=== PATIENT | female | born 1980 | race Caucasian/White ===

== ENCOUNTER → 2016-06-01 | Outpatient (CLI) | payer MEDICARE, OTHER ==
--- NOTE | 2016-06-01 23:35 | MR ---
EXAMINATION TYPE: MR cervical spine wo con DATE OF EXAM: 06/01/2016 8:00 PM COMPARISON: 03/30/2014 HISTORY: Neck pain TECHNIQUE: Multiplanar, multisequence images of the cervical spine were acquired. IMPRESSION: The cervical vertebra have normal spacing and alignment. Posterior element are intact. Cervical spina l cord has normal signal pattern without evidence of edema. There is no spinal stenosis. There is no evidence of cervical disc herniation. There is no paraspinal mass. Brainstem appears intact. CONCLUSION: Negative MR scan of the cervical spine. No cervical disc herniation or spinal stenosis. There are figueroa y small posterior disc bulges at levels from C3 to C6 without any impingement on the spinal canal.
== END | disposition home or self-care (01) ==
LOC: RADMRIMAIN 19:28
PROVIDERS: ATTEND Psychiatry & Neurology Neurology
DX: M50.21 Other cervical disc displacement, high cervical region (principal)
CPT/HCPCS: 72141

== ENCOUNTER → 2016-06-23 | Outpatient (CLI) | payer MEDICARE, OTHER ==
[2016-06-23 15:45] LABS: ALT 26 U/L (9-52); AST 17 U/L (14-36); Alkaline Phosphatase 58 U/L (38-126); Anion Gap 10 mmol/L; Calcium 9.4 mg/dL (8.4-10.2); Carbon Dioxide 28 mmol/L (22-30); Chloride 102 mmol/L (98-107); Glucose 97 mg/dL (74-99); Non-African American GFR(MDRD) >60 (>60 ml/min/1.73 sqM); Potassium 4.1 mmol/L (3.5-5.1); Sodium 140 mmol/L (137-145); Total Bilirubin 0.3 mg/dL (0.2-1.3); Total Protein 7.2 g/dL (6.3-8.2)
[2016-06-23 15:47] LABS: Basophils % (A) 1 %; CHCM 33.2; Eosinophils % (A) 1 %; HCT 42.9 % (34.0-46.0); HDW 2.16; HGB 13.7 gm/dL (11.4-16.0); Luc # (Auto) 0.05; Luc % (Auto) 1; Lymphocytes # (A) 0.5 k/uL (1.0-4.8); Lymphocytes % (A) 11 %; MCV 87.4 fL (80.0-100.0); Mean Platelet Volume 9.8; Monocytes # (A) 0.3 k/uL (0-1.0); Monocytes % (A) 7 %; Neutrophils # (A) 3.2 k/uL (1.3-7.7); Neutrophils % (A) 79 %; RBC 4.91 m/uL (3.80-5.40); RDW 13.3 % (11.5-15.5); WBC (Perox) 3.91
[2016-06-23 16:01] LABS: Blood Urea Nitrogen 9 mg/dL (7-17)
[2016-06-23 16:33] LABS: Vitamin B12 449 pg/mL (239-931)
== END | disposition home or self-care (01) ==
LOC: LABWHC1 15:15
PROVIDERS: ATTEND Psychiatry & Neurology Neurology
DX: R41.3 Other amnesia (principal); E55.9 Vitamin D deficiency, unspecified
CPT/HCPCS: 36415; 80053; 82306; 82607; 84439; 84443; 84481; 85025

== ENCOUNTER → 2016-09-28 | Outpatient (CLI) | payer MEDICARE, OTHER ==
[2016-09-28 11:44] LABS: Basophils % (A) 1 %; CH 29.5; CHCM 32.7; Eosinophils # (A) 0.1 k/uL (0-0.7); Eosinophils % (A) 2 %; HCT 43.9 % (34.0-46.0); HDW 2.18; HGB 14.2 gm/dL (11.4-16.0); Luc # (Auto) 0.15; Luc % (Auto) 4; Lymphocytes # (A) 0.4 k/uL (1.0-4.8); Lymphocytes % (A) 10 %; MCH 29.4 pg (25.0-35.0); MCHC 32.5 g/dL (31.0-37.0); MCV 90.4 fL (80.0-100.0); Mean Platelet Volume 9.4; Monocytes # (A) 0.3 k/uL (0-1.0); Monocytes % (A) 8 %; Neutrophils # (A) 2.8 k/uL (1.3-7.7); Neutrophils % (A) 76 %; RBC 4.85 m/uL (3.80-5.40); WBC 3.7 k/uL (3.8-10.6); WBC (Perox) 3.55
[2016-10-04 10:34] LABS: Mis test requested (Blood) Stratify JCV w/ Rflx
== END | disposition home or self-care (01) ==
LOC: LABWHC1 11:12
PROVIDERS: ATTEND Nurse Practitioner Acute Care
DX: E55.9 Vitamin D deficiency, unspecified (principal); G35 Multiple sclerosis
CPT/HCPCS: 36415; 82306; 85025

== ENCOUNTER → 2017-02-16 | Outpatient (CLI) | payer MEDICARE, OTHER ==
[2017-02-16 16:14] LABS: Basophils % (A) 0 %; CH 30.5; CHCM 33.3; Eosinophils # (A) 0.1 k/uL (0-0.7); Eosinophils % (A) 2 %; HCT 44.1 % (34.0-46.0); HGB 14.5 gm/dL (11.4-16.0); Luc # (Auto) 0.07; Luc % (Auto) 1; Lymphocytes # (A) 0.8 k/uL (1.0-4.8); Lymphocytes % (A) 10 %; MCH 30.2 pg (25.0-35.0); MCHC 32.8 g/dL (31.0-37.0); MCV 92.1 fL (80.0-100.0); Mean Platelet Volume 10.2; Monocytes # (A) 0.7 k/uL (0-1.0); Monocytes % (A) 9 %; Neutrophils # (A) 5.9 k/uL (1.3-7.7); Neutrophils % (A) 77 %; RBC 4.79 m/uL (3.80-5.40); RDW 15.1 % (11.5-15.5); WBC 7.7 k/uL (3.8-10.6); WBC (Perox) 7.54
== END | disposition home or self-care (01) ==
LOC: LABWHC1 15:12
PROVIDERS: ATTEND Physician Assistant
DX: G35 Multiple sclerosis (principal); D72.810 Lymphocytopenia
CPT/HCPCS: 36415; 85025

== ENCOUNTER → 2017-02-22 | Outpatient (CLI) | payer MEDICARE, OTHER ==
--- NOTE | 2017-02-22 23:20 | MR ---
EXAMINATION TYPE: MR brain wo/w con DATE OF EXAM: 02/22/2017 COMPARISON: 02/25/2016 HISTORY: Multiple sclerosis with visual changes TECHNIQUE: Multiplanar, multisequence images of the brain and brainstem is performed without and with IV contras t, utilizing 8.0 mL intravenous Gadavist . FINDINGS: Ventricles of normal size. There is no mass effect nor midline shift. There is no evidence of intracranial hemorrhage. There are multiple scattered foci of increased signal on the T2 and FLAIR images at the corado-white matter junction of both cerebral hemispheres. These are more noticeable in the frontal lobes. Total number is more than 25 and these measure up to 10 mm. Brain stem is intact. Cerebellum appears normal. The sella turcica is normal. Corpus callosum appears fairly normal. The brainstem appears normal. I see no pathologic enhancement. IMPRESSION: Numerous white matter high signal lesions in both cerebral hemispheres appear fairly stab le compared to last exam and would be consistent with small vessel ischemia or demyelinating disease. The pattern is not typical for MS since I see no definite corpus callosum involvement. This is never theless more likely MS because of the patient's age. I see no new lesions compared to old exam.
== END | disposition home or self-care (01) ==
LOC: RADMRIMAIN 18:34
PROVIDERS: ATTEND Nurse Practitioner Acute Care
DX: G93.9 Disorder of brain, unspecified (principal); G35 Multiple sclerosis; R90.82 White matter disease, unspecified; H53.9 Unspecified visual disturbance; Z88.2 Allergy status to sulfonamides
CPT/HCPCS: 70553; A9581

== ENCOUNTER → 2017-06-22 | Outpatient (CLI) | payer MEDICARE, OTHER ==
--- NOTE | 2017-06-22 17:21 | XR ---
EXAMINATION TYPE: XR chest 2V DATE OF EXAM: 06/22/2017 COMPARISON: 03/17/2016 HISTORY: Bronchitis. Chest pain cough TECHNIQUE: Frontal and lateral views of the chest are obtained. FINDINGS: Heart and mediastinum are normal. There are surgical clips over the left side of the neck. Lungs are clear of infiltrate. There is no heart failure. There is mild pulmonary hyperinflation. IMPRESSION: There is probably some degree of COPD. No acute lung disease. No change.
== END | disposition home or self-care (01) ==
LOC: RADXRMAIN 16:25
PROVIDERS: ATTEND Family Medicine
DX: R05 Cough (principal)
CPT/HCPCS: 71046

== ENCOUNTER → 2017-07-17 | Outpatient (CLI) | payer MEDICARE, OTHER | END | disposition home or self-care (01) | LOC: CPPFTMAIN 11:57 | PROVIDERS: ATTEND Family Medicine | DX: R05 Cough (principal) | CPT/HCPCS: 94060; 94726; 94729 ==

== ENCOUNTER → 2017-08-13 | Outpatient (CLI) | payer MEDICARE, OTHER ==
[2017-08-13 09:56] LABS: HCT 41.6 % (34.0-46.0); HGB 13.1 gm/dL (11.4-16.0); MCH 27.9 pg (25.0-35.0); MCHC 31.5 g/dL (31.0-37.0); MCV 88.5 fL (80.0-100.0); Platelet Count 142 k/uL (150-450); RDW 14.2 % (11.5-15.5); WBC 5.6 k/uL (3.8-10.6)
[2017-08-13 10:22] LABS: ALT 17 U/L (9-52); AST 19 U/L (14-36); Albumin 3.6 g/dL (3.5-5.0); Alkaline Phosphatase 68 U/L (38-126); Anion Gap 8 mmol/L; Blood Urea Nitrogen 7 mg/dL (7-17); Calcium 8.4 mg/dL (8.4-10.2); Carbon Dioxide 29 mmol/L (22-30); Chloride 103 mmol/L (98-107); Glucose 99 mg/dL (74-99); Potassium 4.1 mmol/L (3.5-5.1); Sodium 140 mmol/L (137-145); Total Bilirubin 0.2 mg/dL (0.2-1.3); Total Protein 6.3 g/dL (6.3-8.2)
[2017-08-13 16:00] LABS: Vitamin D 25 Hydroxy 23.4 ng/mL (30.0-100.0)
== END | disposition home or self-care (01) ==
LOC: LABWHC1 09:21
PROVIDERS: ATTEND Nurse Practitioner Acute Care
DX: G35 Multiple sclerosis (principal); R53.83 Other fatigue
CPT/HCPCS: 36415; 80053; 82306; 82607; 85027

== ENCOUNTER → 2017-12-07 | Outpatient (CLI) | payer MEDICARE, OTHER ==
[2017-12-07 16:06] LABS: Basophils % (A) 1 %; Eosinophils % (A) 1 %; HCT 42.9 % (34.0-46.0); HGB 14.2 gm/dL (11.4-16.0); Lymphocytes # (A) 0.8 k/uL (1.0-4.8); Lymphocytes % (A) 23 %; MCH 28.4 pg (25.0-35.0); MCHC 33.2 g/dL (31.0-37.0); MCV 85.6 fL (80.0-100.0); Mean Platelet Volume 9.6; Monocytes # (A) 0.3 k/uL (0-1.0); Monocytes % (A) 8 %; Neutrophils # (A) 2.3 k/uL (1.3-7.7); Neutrophils % (A) 66 %; Platelet Count 147 k/uL (150-450); RDW 13.8 % (11.5-15.5); WBC 3.4 k/uL (3.8-10.6)
== END | disposition home or self-care (01) ==
LOC: LABWHC1 15:46
PROVIDERS: ATTEND Nurse Practitioner Acute Care
DX: G35 Multiple sclerosis (principal)
CPT/HCPCS: 36415; 82306; 85025

== ENCOUNTER → 2018-02-19 | Outpatient (CLI) | payer MEDICARE, OTHER ==
--- NOTE | 2018-02-20 14:42 | MM ---
Reason for exam: screening (asymptomatic). Last mammogram was performed 2 years and 7 months ago. History: Took hormonal contraceptives for 5 years. Physical Findings: A clinical breast exam by your physician is recommended on an annual basis and results should be correlated with mammographic findings. MG Screening Mammo w CAD Bilateral CC and MLO view(s) were taken. Prior study comparison: July 12, 2015, bilateral MG screening mammo w CAD. July 03, 2014, bilateral MG diagnostic mammo w CAD SHIVAM. The breast tissue is extremely dense which could obscure a lesion on mammography. No significant changes when compared with prior studies. ASSESSMENT: Negative, BI-RAD 1 RECOMMENDATION: Routine screening mammogram of both breasts in 1 year. Patient should continue monthly self breast exams. A negative report should not preclude additional follow up of suspicious palpable abnormalities. Manage on a clinical basis with regard to lateral right breast pain.
== END | disposition home or self-care (01) ==
LOC: RADMAMWWP 15:53
PROVIDERS: ATTEND Family Medicine
DX: Z12.31 Encounter for screening mammogram for malignant neoplasm of breast (principal)
CPT/HCPCS: 77067

== ENCOUNTER → 2018-07-26 | Outpatient (CLI) | payer MEDICARE, OTHER ==
[2018-07-26 14:52] LABS: Basophils % (A) 0 %; Eosinophils # (A) 0.1 k/uL (0-0.7); Eosinophils % (A) 1 %; HCT 41.6 % (34.0-46.0); HGB 13.5 gm/dL (11.4-16.0); Lymphocytes # (A) 0.7 k/uL (1.0-4.8); Lymphocytes % (A) 12 %; MCHC 32.5 g/dL (31.0-37.0); MCV 89.1 fL (80.0-100.0); Mean Platelet Volume 9.2; Monocytes # (A) 0.4 k/uL (0-1.0); Monocytes % (A) 7 %; Neutrophils # (A) 4.4 k/uL (1.3-7.7); Neutrophils % (A) 79 %; Platelet Count 151 k/uL (150-450); RBC 4.67 m/uL (3.80-5.40); RDW 14.1 % (11.5-15.5); WBC 5.6 k/uL (3.8-10.6)
[2018-07-26 20:12] LABS: Albumin 4.2 g/dL (3.80-4.90); Albumin/Globulin Ratio 2.33 (1.60-3.17); Anion Gap 9.3 mmol/L (4.00-12.00); Calcium 9.1 mg/dL (8.7-10.3); Carbon Dioxide 24.7 mmol/L (21.6-31.8); Globulin 1.8 g/dL (1.6-3.3); Potassium 3.9 mmol/L (3.5-5.5); Total Bilirubin 0.3 mg/dL (0.2-1.2)
== END ==
LOC: LABWHC1 14:08
PROVIDERS: ATTEND Physician Assistant
DX: G35 Multiple sclerosis (principal)
CPT/HCPCS: 36415; 80053; 82306; 85025

== ENCOUNTER → 2019-04-03 | Outpatient (CLI) | payer MEDICARE, OTHER ==
--- NOTE | 2019-04-03 10:58 | XR ---
EXAMINATION TYPE: XR chest 2V DATE OF EXAM: 04/03/2019 COMPARISON: 06/22/2017 TECHNIQUE: PA and lateral views submitted. HISTORY: Pharyngitis FINDINGS: The lungs are clear and there is no pneumothorax, pleural effusion, or focal pneumonia. Postsurgica l changes in the soft tissues the neck. Biapical pleural thickening. Chronic appearing rib deformity in the upper left rib cage. Finding is stable. No overt failure. There is mild hyperinflation correla te for COPD. Mild hypertrophic change of the vertebral column. No overt failure. IMPRESSION: 1. No acute process.
== END | disposition home or self-care (01) ==
LOC: RADXRMAIN 10:36
PROVIDERS: ATTEND Family Medicine
DX: J02.9 Acute pharyngitis, unspecified (principal)
CPT/HCPCS: 71046

== ENCOUNTER 2019-04-06 20:52 | Emergency (ER) | payer MEDICARE, OTHER ==
[2019-04-06 20:59] VITALS: BP 120/85; RESP 16; TEMP 97.4
[2019-04-06] MEDS ORDERED: IPRATROPIUM-ALBUTEROL 3 ML NEB INHALATION STA (21:12)
[2019-04-06] MEDS ORDERED: IBUPROFEN 600 MG TAB PO STA (21:12)
[2019-04-06] MEDS ORDERED: ACETAMINOPHEN TAB 500 MG TAB PO STA (21:12)
[2019-04-06] MEDS ORDERED: DEXAMETHASONE SOD PHOSPHATE 10 MG/ML 1 ML VIAL IM STA (21:12)
--- NOTE | 2019-04-06 21:16 | ED ---
URI HPI - General Chief Complaint: Upper Respiratory Infection Stated Complaint: Cough Time Seen by Provider: 04/06/19 21:00 Source: patient, RN notes reviewed, old records reviewed Mode of arrival: ambulatory Limitations: no limitations - History of Present Illness Initial Comments: This is a 39-year-old female the ER for evaluation medical history significant for MS and is a smoker. Patient comes today for cough and congestion having some chest pain symptoms 3 months. Patient has seen her primary care doctor told she has a viral infection and has carried on. Patient denies fevers. Rarely occasional chest pain only with coughing. No travel history no sick contacts does have positive productive cough mucus production. Shortness of breath with exertion, patient has continued to smoke. No history of heart disease. No known significant sick contacts or recent hospitalizations. MD Complaint: cough, nasal congestion -: month(s) Severity: moderate Severity scale (1-10): 3 Consistency: intermittent Improves With: nothing Worsens With: activity, deep breaths Associated Symptoms: myalgias, nasal congestion, shortness of breath Treatments Prior to Arrival: Acetaminophen, Ibuprofen - Related Data Home Medications Medication Instructions Recorded Confirmed HYDROcodone/APAP 7.5-325MG [[place] 1 tab PO Q6H PRN 10/06/13 06/28/16 7.5-325] Ibuprofen [Motrin] 600 mg PO BID PRN 10/06/13 06/28/16 Dimethyl Fumarate [Tecfidera] 240 mg PO BID 03/23/14 06/28/16 Previous Rx's Medication Instructions Recorded HYDROcodone/APAP 7.5-325MG [[place] 1 each PO Q6HR PRN #30 tab 03/31/16 7.5] Albuterol Sulfate [Proair Hfa] 1 - 2 puff INHALATION Q4H PRN #1 04/06/19 inhaler Azithromycin [Zithromax Z-pack] 0 mg PO DIRECTED #1 pack 04/06/19 predniSONE 50 mg PO DAILY #5 tab 04/06/19 Allergies Allergy/AdvReac Type Severity Reaction Status Date / Time hydrocodone bitartrate Allergy Intermediate Nausea & Verified 06/28/16 08:50 [From Lortab] Vomiting & Diarrhea oxycodone HCl [From Percocet] Allergy Intermediate Nausea & Verified 06/28/16 08:50 Vomiting & Diarrhea Review of Systems ROS Statement: Those systems with pertinent positive or pertinent negative responses have been documented in the HPI. ROS Other: All systems not noted in ROS Statement are negative. Past Medical History Past Medical History: Neurologic Disorder, Rheumatoid Arthritis (RA) Additional Past Medical History / Comment(s): MS History of Any Multi-Drug Resistant Organisms: None Reported Past Surgical History: Appendectomy, Hysterectomy, Orthopedic Surgery, Tubal Ligation Additional Past Surgical History / Comment(s): 3 surgeries left kneeremoval abdominal tumor under left breast as Past Psychological History: No Psychological Hx Reported Smoking Status: Current every day smoker Past Alcohol Use History: None Reported Past Drug Use History: None Reported General Exam Limitations: no limitations General appearance: alert, in no apparent distress Head exam: Present: atraumatic, normocephalic, normal inspection Eye exam: Present: normal appearance, PERRL, EOMI. Absent: scleral icterus, conjunctival injection, periorbital swelling ENT exam: Present: normal exam, mucous membranes moist Neck exam: Present: normal inspection. Absent: tenderness, meningismus, lymphadenopathy Respiratory exam: Present: wheezes, decreased breath sounds. Absent: respiratory distress, rales, rhonchi, stridor Cardiovascular Exam: Present: regular rate, normal rhythm, normal heart sounds. Absent: systolic murmur, diastolic murmur, rubs, gallop, clicks GI/Abdominal exam: Present: soft, normal bowel sounds. Absent: distended, tenderness, guarding, rebound, rigid Extremities exam: Present: normal inspection, full ROM, normal capillary refill. Absent: tenderness, pedal edema, joint swelling, calf tenderness Back exam: Present: normal inspection Neurological exam: Present: alert, oriented X3, CN II-XII intact Psychiatric exam: Present: normal affect, normal mood Skin exam: Present: warm, dry, intact, normal color. Absent: rash Course Vital Signs 04/06/19 20:56 Temperature 97.4 F L Pulse Rate 85 Respiratory 16 Rate Blood Pressure 120/85 O2 Sat by Pulse 99 Oximetry - Reevaluation(s) Reevaluation #1: 04/06/19 21:14 Medical records reviewed 04/06/19 21:15 Patient did have recent outpatient x-rays as well as lab work all labwork was normal x-ray was negative Reevaluation #2: 04/06/19 21:54 Improvement with breathing treatments Reevaluation #3: 04/06/19 21:15 Patient given instructions on how to quit smoking Medical Decision Making - Medical Decision Making 39 female with a pressure infection, bronchitis, will treat appropriately and patient can be discharged home Disposition Clinical Impression: Acute upper respiratory infection, Bronchitis Disposition: ADMITTED IP TO THIS HOSP Condition: Good Instructions (If sedation given, give patient instructions): Upper Respiratory Infection (ED), Acute Bronchitis (ED), How to Stop Smoking (ED) Prescriptions: predniSONE 50 mg PO DAILY #5 tab Albuterol Sulfate [Proair Hfa] 1 - 2 puff INHALATION Q4H PRN #1 inhaler PRN Reason: Shortness Of Breath Azithromycin [Zithromax Z-pack] 0 mg PO DIRECTED #1 pack Is patient prescribed a controlled substance at d/c from ED?: No Referrals: Vince Lindsey [Primary Care Provider] - 1-2 days
[2019-04-06 21:34] VITALS: PULSE 88
== END 2019-04-06 22:08 | disposition other institution (70) ==
LOC: EC 20:52
DX: J40 Bronchitis, not specified as acute or chronic (principal); J06.9 Acute upper respiratory infection, unspecified; G35 Multiple sclerosis; M06.9 Rheumatoid arthritis, unspecified; F17.200 Nicotine dependence, unspecified, uncomplicated; Z79.899 Other long term (current) drug therapy; Z88.5 Allergy status to narcotic agent; Z71.6 Tobacco abuse counseling
CPT/HCPCS: 94640; 96372; 99284; J1100

== ENCOUNTER 2019-07-02 21:08 | Emergency (ER) | payer MEDICARE, OTHER ==
[2019-07-02 21:15] VITALS: BP 126/82; PULSE 92; RESP 20; TEMP 98
--- NOTE | 2019-07-02 22:17 | ED ---
General Adult HPI - General Chief complaint: Extremity Injury, Upper Stated complaint: rt hand numbness Time Seen by Provider: 07/02/19 21:18 Source: patient, RN notes reviewed, old records reviewed Mode of arrival: ambulatory Limitations: no limitations - History of Present Illness Initial comments: 39-year-old female patient presents to ED for chief complaint of paresthesias on the first second and third digits on the right hand. It has been ongoing for approximately 3 days. Patient did mention this to her neurologist on Sunday and had a steroid shot. That has not been improving. Denies any other complaints. Systemic: Pt denies fatigue, fever/chills, rash. Pt denies weakness, night sweats, weight loss. Neuro: Pt denies headache, visual disturbances, syncope or pre-syncope. HEENT: Pt denies ocular discharge or irritation, otalgia, rhinorrhea, pharyngitis or notable lymphadenopathy. Cardiopulmonary: Pt denies chest pain, SOB, heart palpitations, dyspnea on exertion. Abdominal/GI: Pt denies abdominal pain, n/v/d. : Pt denies dysuria, burning w/ urination, frequency/urgency. Denies new onset urinary or bowel incontinence. MSK: Pt denies myalgia, loss of strength or function in extremities. Neuro: Pt denies new onset weakness. - Related Data Home Medications Medication Instructions Recorded Confirmed HYDROcodone/APAP 7.5-325MG [[place] 1 tab PO Q6H PRN 10/06/13 06/28/16 7.5-325] Ibuprofen [Motrin] 600 mg PO BID PRN 10/06/13 06/28/16 Dimethyl Fumarate [Tecfidera] 240 mg PO BID 03/23/14 06/28/16 Previous Rx's Medication Instructions Recorded HYDROcodone/APAP 7.5-325MG [[place] 1 each PO Q6HR PRN #30 tab 03/31/16 7.5] Albuterol Sulfate [Proair Hfa] 1 - 2 puff INHALATION Q4H PRN #1 04/06/19 inhaler Azithromycin [Zithromax Z-pack] 0 mg PO DIRECTED #1 pack 04/06/19 predniSONE 50 mg PO DAILY #5 tab 04/06/19 Allergies Allergy/AdvReac Type Severity Reaction Status Date / Time hydrocodone bitartrate Allergy Intermediate Nausea & Verified 07/02/19 21:15 [From Lortab] Vomiting & Diarrhea oxycodone HCl [From Percocet] Allergy Intermediate Nausea & Verified 07/02/19 21:15 Vomiting & Diarrhea Review of Systems ROS Statement: Those systems with pertinent positive or pertinent negative responses have been documented in the HPI. ROS Other: All systems not noted in ROS Statement are negative. Past Medical History Past Medical History: Neurologic Disorder, Rheumatoid Arthritis (RA) Additional Past Medical History / Comment(s): MS History of Any Multi-Drug Resistant Organisms: None Reported Past Surgical History: Appendectomy, Hysterectomy, Orthopedic Surgery, Tubal Ligation Additional Past Surgical History / Comment(s): 3 surgeries left knee removal abdominal tumor under left breast as infant Past Psychological History: No Psychological Hx Reported Smoking Status: Current every day smoker Past Alcohol Use History: None Reported Past Drug Use History: None Reported General Exam - General Exam Comments Initial Comments: Constitutional: NAD, AOX3, Pt has pleasant affect. HEENT: NC/AT, trachea midline, neck supple, no lymphadenopathy. Posterior pharynx non erythematous, without exudates. External ears appear normal, without discharge. Mucous membranes moist. Eyes PERRLA, EOM intact. There is no scleral icterus. No pallor noted. Cardiopulmonary: RRR, no murmurs, rubs or gallops, no JVD noted. Lungs CTAB in anterior and posterior brennan. No peripheral edema. Abdominal exam: Abdomen soft and non-distended. Abdomen non-tender to palpation in all 4 quadrants. Bowel sounds active in LLQ. No hepatosplenomegaly. No ecchymosis Neuro: CN II-XII intact. No nuchal rigidity. No raccon eyes, no bai sign, no hemotympanum. No cervical spinal tenderness. NIH is 0. MSK: No posterior calf tenderness bilaterally, homans sign negative bilaterally. Posterior tibialis and radial pulse +2 bilaterally. Sensation intact in upper and lower extremities. Full active ROM in upper and lower extremities, 5/5 stregnth. Sensation is intact and first second third digits. Neurovascularly intact. Positive Tinel sign. Limitations: no limitations Course Vital Signs 07/02/19 21:12 Temperature 98.0 F Pulse Rate 92 Respiratory 20 Rate Blood Pressure 126/82 O2 Sat by Pulse 96 Oximetry Medical Decision Making - Medical Decision Making 39-year-old female patient presents to ED for chief complaint of paresthesias on the first second and third digits on the right hand. It has been ongoing for approximately 3 days. Patient did mention this to her neurologist on Sunday and had a steroid shot. That has not been improving. Denies any other complaints. Patient vital signs stable, afebrile. Physical exam the intact neurologic exam. Sensation is intact in the fingers which patient is complaining of paresthesias. Cap refill less than 2 seconds. Radial pulse +2. Full active range of motion. Further history taking patient does reveal that she has previous diagnosis of carpal, all in this hand. She reports that she does have paresthesias in her hands that have at times woke her up during the night on the affected hand. Patient likely experiencing a carpal tunnel syndrome causing this discomfort. Patient reports that she is unable to take prednisone on due to ALLERGY. Patient discharged advised to use neutral splint, follow-up with primary care provider and neurologist and will return to ER if condition worsens. Case discussed with Dr. Last. Disposition Clinical Impression: Paresthesia of hand Disposition: HOME SELF-CARE Condition: Stable Instructions (If sedation given, give patient instructions): Paresthesia (ED), Carpal Tunnel Surgery (DC) Additional Instructions: Follow-up with primary care provider tomorrow as well as neurologist. Use neutral splints. Return to ER if condition worsens. Is patient prescribed a controlled substance at d/c from ED?: No Referrals: Vince Lindsey [Primary Care Provider] - 1-2 days
== END 2019-07-02 22:50 | disposition home or self-care (01) ==
LOC: EC 21:08
DX: R20.2 Paresthesia of skin (principal); R20.0 Anesthesia of skin; G35 Multiple sclerosis; M06.9 Rheumatoid arthritis, unspecified; F17.200 Nicotine dependence, unspecified, uncomplicated; Z88.5 Allergy status to narcotic agent; Z98.890 Other specified postprocedural states
CPT/HCPCS: 99284

== ENCOUNTER → 2019-07-09 | Outpatient (CLI) | payer MEDICARE, OTHER ==
[2019-07-09 11:10] LABS: Basophils % (A) 1 %; Eosinophils # (A) 0.1 k/uL (0-0.7); Eosinophils % (A) 2 %; HCT 44.3 % (34.0-46.0); HGB 14.3 gm/dL (11.4-16.0); Lymphocytes % (A) 18 %; MCH 28.6 pg (25.0-35.0); MCHC 32.3 g/dL (31.0-37.0); MCV 88.5 fL (80.0-100.0); Mean Platelet Volume 9.8; Monocytes # (A) 0.4 k/uL (0-1.0); Monocytes % (A) 8 %; Neutrophils # (A) 4.1 k/uL (1.3-7.7); Neutrophils % (A) 70 %; Platelet Count 131 k/uL (150-450); RBC 5.01 m/uL (3.80-5.40); RDW 13.7 % (11.5-15.5); WBC 5.8 k/uL (3.8-10.6)
[2019-07-09 16:21] LABS: African American GFR (CKD) 124.7 (60.0-200.0); Albumin 4.3 g/dL (3.80-4.90); Albumin/Globulin Ratio 2.69 (1.60-3.17); Anion Gap 6.7 mmol/L (4.00-12.00); BUN/Creat Ratio 25.71 Ratio (12.00-20.00); Calcium 9.1 mg/dL (8.7-10.3); Carbon Dioxide 28.3 mmol/L (21.6-31.8); Globulin 1.6 g/dL (1.6-3.3); Non-African American GFR(CKD) 107.6 (60.0-200.0); Potassium 4.2 mmol/L (3.5-5.5); Total Bilirubin 0.3 mg/dL (0.3-1.2); Total Protein 5.9 g/dL (6.2-8.2)
== END | disposition home or self-care (01) ==
LOC: LABWHC1 09:54
PROVIDERS: ATTEND Physician Assistant
DX: G35 Multiple sclerosis (principal)
CPT/HCPCS: 36415; 80053; 85025

== ENCOUNTER → 2019-10-24 | Outpatient (CLI) | payer MEDICARE, OTHER ==
--- NOTE | 2019-10-25 10:39 | MR ---
EXAMINATION TYPE: MR knee RT wo con DATE OF EXAM: 10/24/2019 COMPARISON: X-ray 09/15/2019 HISTORY: Rt knee pain TECHNIQUE: Multiplanar, multisequence imaging of the right knee is performed without IV contrast. FINDINGS: MEDIAL MENISCUS: There is a linear area of abnormal signal involving the posterior horn of the medial meniscus compatible with tear LATERAL MENISCUS: Anterior and posterior horns are intact without tear. CRUCIATE LIGAMENTS: The anterior and posterior cruciate ligaments are intact and unremarkable. COLLATERAL LIGAMENTS: The medial collateral ligament and lateral collateral ligament complex are inta ct and unremarkable. EXTENSOR MECHANISM: Visualized quadriceps and patellar tendons are intact. EFFUSION: No significant suprapatellar joint effusion. POPLITEAL CYST: No popliteal/llanos cyst. TRICOMPARTMENT SPACES: Mild narrowing of the medial compartment knee joint. No erosive changes. Carti dada is preserved. CARTILAGE: Cartilage is preserved BONE MARROW SIGNAL: No focal abnormal marrow signal is appreciated. OTHER: No additional significant abnormality is appreciated. IMPRESSION: Posterior horn medial meniscal tear.
== END | disposition home or self-care (01) ==
LOC: RADMRIMAIN 18:20
PROVIDERS: ATTEND Orthopaedic Surgery
DX: S83.241A Other tear of medial meniscus, current injury, right knee, initial encounter (principal)

== ENCOUNTER → 2019-12-23 | Outpatient (CLI) | payer MEDICARE, OTHER ==
[2019-12-23 11:12] LABS: Basophils % (A) 1 %; Eosinophils # (A) 0.1 k/uL (0-0.7); Eosinophils % (A) 2 %; HCT 43.2 % (34.0-46.0); HGB 13.6 gm/dL (11.4-16.0); Lymphocytes # (A) 0.8 k/uL (1.0-4.8); Lymphocytes % (A) 16 %; MCH 27.8 pg (25.0-35.0); MCHC 31.6 g/dL (31.0-37.0); MCV 87.9 fL (80.0-100.0); Mean Platelet Volume 10.1; Monocytes # (A) 0.5 k/uL (0-1.0); Monocytes % (A) 10 %; Neutrophils # (A) 3.5 k/uL (1.3-7.7); Neutrophils % (A) 70 %; Platelet Count 135 k/uL (150-450); RBC 4.91 m/uL (3.80-5.40); RDW 13.5 % (11.5-15.5)
[2019-12-23 11:26] LABS: Potassium 4.6 mmol/L (3.5-5.1)
== END | disposition home or self-care (01) ==
LOC: LABPAT 10:05
PROVIDERS: ATTEND Orthopaedic Surgery
DX: Z01.818 Encounter for other preprocedural examination (principal); M23.91 Unspecified internal derangement of right knee
CPT/HCPCS: 36415; 80051; 85025

== ENCOUNTER 2020-01-02 08:41 | Day surgery (SDC) | payer MEDICARE, OTHER ==
[2019-12-30 08:46] VITALS: BMI 15.7
--- NOTE | 2020-01-01 14:10 | HP ---
HISTORY AND PHYSICAL CHIEF COMPLAINT: Right knee pain. HISTORY OF PRESENT ILLNESS: Patient is a 39-year-old female with multiple sclerosis who presents with progressive right knee pain for the past year or so. She notes medial and lateral pain along with giving way intermittently. She has tried medications along with injections with only partial temporary relief. She notes the pain significantly limits her function and mobility. PAST MEDICAL HISTORY: Significant for multiple sclerosis and psoriasis. PAST SURGICAL HISTORY: Left knee arthroscopy. CURRENT MEDICATIONS: Ibuprofen and Tecfidera. She has allergies to LORTAB/PERCOCET/AND sensitivity to PREDNISONE. FAMILY HISTORY: Significant for cancer. SOCIAL HISTORY: Significant for 3/4 pack per day tobacco use. 16 POINT REVIEW OF SYSTEMS: Otherwise reviewed and is noncontributory. PHYSICAL EXAMINATION: On examination, the patient is approximately 5 foot 5, 97 pounds of ectomorphic habitus. HEENT exam is nonfocal. Neck is supple. She has painless passive motion of the right hip. Straight leg raise is negative. Active motion right knee is -10 degrees, full extension to 145 degrees of flexion. She has a trace effusion. She is tender about the medial greater than lateral joint line. Collaterals are stable, Alejandra is negative, Mia's elicits medial pain. Her distal neurovascular appears to be intact in the right lower extremity. MRI report right knee 10/24/2019 shows increased signal along posterior horn of the medial meniscus. IMPRESSION: 1. Internal derangement, right knee with possible medial meniscal tear. 2. History of multiple sclerosis. RECOMMENDATIONS: I talked to the patient at length regarding her condition along with treatment options. At this point, she has persistent pain and mechanical symptoms despite conservative measures. After thorough discussion, she opts to proceed with surgery. We will plan to proceed with arthroscopic evaluation with possible partial medial meniscectomy. We will likely perform that as an outpatient procedure. Risks and benefits were discussed at length in layman's terms. MMODL / IJN: [id number] /
[~2020-01-02 08:41] MED LIST: DEXAMETHASONE SOD PHOSPHATE 10 MG/ML 1 ML VIAL IV ONE; LACTATED RINGERS 1,000 ML IV SCH; LIDOCAINE 1% (10MG/ML) FOR IV START INTRADERMA PRN; ONDANSETRON 4 MG/2 ML VIAL IVP ONE; SCOPOLAMINE 1.5MG/72HR PATCH TRANSDERM ONE
[2020-01-02] MEDS ORDERED: ONDANSETRON 4 MG/2 ML VIAL ONE (09:12)
[2020-01-02] MEDS ORDERED: LIDOCAINE 1% INJ 10MG/ML (20 ML MDV) ONE (09:36)
[2020-01-02] MEDS ORDERED: PROPOFOL 10 MG/ML 20 ML VIAL IV ONE (09:36)
[2020-01-02] MEDS ORDERED: fentaNYL (PF) 50 MCG/ML 2 ML AMP ONE (09:36)
[2020-01-02] MEDS ORDERED: MIDAZOLAM 2 MG/2 ML VIAL ONE (09:36)
[2020-01-02] MEDS ORDERED: EPINEPHrine (PF) 1 ML in SODIUM CHLORIDE 0.9% IRRIGATIO 3,000 ML IRRIGATION ONE ×4 (10:14)
--- NOTE | 2020-01-02 10:24 | P.OP ---
Date of Procedure: 01/02/20 Preoperative Diagnosis: Right knee internal derangement Postoperative Diagnosis: Right knee posterior medial meniscal tear/reactive synovitis of the medial, lateral, and patellofemoral compartments Procedure(s) Performed: Right knee arthroscopic partial medial meniscectomy/partial synovectomy of the medial, lateral, and patellofemoral compartments Anesthesia: APRIL Surgeon: Ken Santana Estimated Blood Loss (ml): 10 Pathology: none sent Condition: stable Disposition: PACU Indications for Procedure: The patient's a 39-year-old female presents with progressive right knee pain and mechanical symptoms despite extensive previous conservative measures. A discussion of the risks and benefits of operative intervention versus continued conservative measures was made with patient. She opted proceed with surgery. Operative risks to include infection, neurovascular injury, development of blood clots, possible incomplete resolution of symptoms possible worsening symptoms and need for subsequent procedures was discussed. Informed consent was obtained. Operative Findings: As below Description of Procedure: The patient was brought to the operating room, and after induction of general anesthesia examined the right knee. Collaterals were stable, Alejandra was negative, and posterior drawer was negative. The right lower extremity was prepped and draped in a normal fashion. A superior lateral portal was made through a 3 mm skin incision superior and lateral to the patella. This was used for outflow. A lateral portal was made through a 5 mm vertical skin incision lateral to the patella tendon above the joint line. Diagnostic arthroscopy was performed. On inspection of the medial compartment, a small flap tear involving the posterior most aspect medial meniscus was noted in the white-white junction. This was debrided back to stable base with straight baskets and a motorized shaver. Reactive synovitis involving anterior medial compartment was debrided with a motorized shaver. On inspection of the notch, the anterior cruciate ligament appeared to be intact. On inspection of the lateral compartment, no significant meniscal pathology was noted. Again reactive synovitis involving the anterolateral compartment was debrided with a motorized shaver.. On inspection of the patellofemoral articulation, there is chondral fibrillation however no loose chondral fragments. Reactive synovitis was debrided with a motorized shaver.. The gutters were clear debris. The knee was then thoroughly irrigated. The portals were closed with Steri-Strips. A sterile dressing was applied in addition to a compression stocking. The patient was awoken from general anesthesia and transferred to recovery room in good condition. Blood loss was estimated at 10 mL. No complications were incurred.
[2020-01-02 10:32] VITALS: TEMP 96.8
[2020-01-02] MEDS: HYDROmorphone 0.5 MG/0.5 ML SYRINGE IVP PRN ×2 (10:49→10:54)
[2020-01-02 11:11] VITALS: RESP 16
[2020-01-02] MEDS ORDERED: HYDROcodone/APAP 5-325MG 1 EACH TAB ONE (11:26)
[2020-01-02] MEDS ORDERED: HYDROcodone/APAP 5-325MG 1 EACH TAB PO ONE (11:30)
[2020-01-02 11:53] VITALS: BP 116/81; PULSE 76
== END 2020-01-02 12:25 | disposition home or self-care (01) ==
LOC: OR 08:41
PROVIDERS: ATTEND Orthopaedic Surgery
DX: M23.321 Other meniscus derangements, posterior horn of medial meniscus, right knee (principal); M65.861 Other synovitis and tenosynovitis, right lower leg; G35 Multiple sclerosis; L40.9 Psoriasis, unspecified; K08.89 Other specified disorders of teeth and supporting structures; F17.210 Nicotine dependence, cigarettes, uncomplicated; Z88.8 Allergy status to other drugs, medicaments and biological substances; Z88.5 Allergy status to narcotic agent; Z98.890 Other specified postprocedural states; Z79.1 Long term (current) use of non-steroidal anti-inflammatories (NSAID); Z79.899 Other long term (current) drug therapy; Z90.49 Acquired absence of other specified parts of digestive tract; Z90.710 Acquired absence of both cervix and uterus; Z98.51 Tubal ligation status; Z80.9 Family history of malignant neoplasm, unspecified
CPT/HCPCS: 29881; 29876; J2250; J1100; J2405; J0690; J0171; J2001; J3010; J2704; J1170

== ENCOUNTER → 2020-03-09 | Outpatient (CLI) | payer MEDICARE, OTHER ==
[2020-03-09 15:21] LABS: Basophils % (A) 1 %; Eosinophils # (A) 0.1 k/uL (0-0.7); Eosinophils % (A) 1 %; HGB 13.9 gm/dL (11.4-16.0); Lymphocytes # (A) 1.1 k/uL (1.0-4.8); Lymphocytes % (A) 17 %; MCH 28.7 pg (25.0-35.0); MCHC 31.7 g/dL (31.0-37.0); MCV 90.6 fL (80.0-100.0); Mean Platelet Volume 10.4; Monocytes # (A) 0.5 k/uL (0-1.0); Monocytes % (A) 8 %; Neutrophils # (A) 4.4 k/uL (1.3-7.7); Neutrophils % (A) 71 %; Platelet Count 155 k/uL (150-450); RBC 4.86 m/uL (3.80-5.40); RDW 13.6 % (11.5-15.5); WBC 6.2 k/uL (3.8-10.6)
[2020-03-10 05:03] LABS: African American GFR (CKD) 123.9 (60.0-200.0); Albumin 4.3 g/dL (3.80-4.90); Albumin/Globulin Ratio 2.39 (1.60-3.17); Anion Gap 10.1 mmol/L (4.00-12.00); BUN/Creat Ratio 14.29 Ratio (12.00-20.00); Carbon Dioxide 25.9 mmol/L (21.6-31.8); Globulin 1.8 g/dL (1.6-3.3); Non-African American GFR(CKD) 106.9 (60.0-200.0); Potassium 3.7 mmol/L (3.5-5.5); Total Bilirubin 0.3 mg/dL (0.3-1.2); Total Protein 6.1 g/dL (6.2-8.2)
== END | disposition home or self-care (01) ==
LOC: LABWHC1 14:22
PROVIDERS: ATTEND Physician Assistant
DX: G35 Multiple sclerosis (principal); E55.9 Vitamin D deficiency, unspecified
CPT/HCPCS: 36415; 80053; 85025

== ENCOUNTER → 2020-07-19 | Outpatient (CLI) | payer MEDICARE, OTHER ==
[2020-07-20 04:35] LABS: T4, Free (Free Thyroxine) 1.1 ng/dL (0.80-1.80)
[2020-07-20 05:02] LABS: Hepatitis B Surface AB- Quant 3.5 mIU/mL; Hepatitis B Surface Antibody Non-Reactive (Non-Reactive)
== END | disposition home or self-care (01) ==
LOC: LABWHC1 15:06
PROVIDERS: ATTEND Nurse Practitioner Family
DX: E04.1 Nontoxic single thyroid nodule (principal)
CPT/HCPCS: 36415; 84439; 84443; 84481; 86706

== ENCOUNTER → 2021-01-26 | Outpatient (CLI) | payer MEDICARE, OTHER ==
[2021-01-26 20:07] LABS: Basophils # (A) 0.03 X 10*3/uL (0.00-0.10); Basophils % (A) 0.7 %; Eosinophils # (A) 0.02 X 10*3/uL (0.04-0.35); Eosinophils % (A) 0.5 %; HCT 42.2 % (37.2-46.3); Lymphocytes # (A) 0.57 X 10*3/uL (0.90-5.00); Lymphocytes % (A) 13.3 %; MCH 28.8 pg (27.0-32.0); MCHC 33.2 g/dL (32.0-37.0); MCV 86.8 fL (80.0-97.0); Mean Platelet Volume 13.1 fL (9.5-12.2); Monocytes # (A) 0.29 X 10*3/uL (0.20-1.00); Monocytes % (A) 6.8 %; Neutrophils # (A) 3.35 X 10*3/uL (1.80-7.70); Neutrophils % (A) 78.5 %; Platelet Count 141 X 10*3/uL (140-440); RBC 4.86 X 10*6/uL (4.10-5.20); RDW 13.5 % (11.5-14.5); WBC 4.27 X 10*3/uL (4.50-10.00)
[2021-01-27 02:25] LABS: African American GFR (CKD) 105.4 (60.0-200.0); Albumin 4.8 g/dL (3.80-4.90); Albumin/Globulin Ratio 2.18 (1.60-3.17); Anion Gap 9.4 mmol/L (4.00-12.00); BUN/Creat Ratio 13.75 Ratio (12.00-20.00); Calcium 9.3 mg/dL (8.7-10.3); Carbon Dioxide 28.6 mmol/L (21.6-31.8); Globulin 2.2 g/dL (1.6-3.3); Non-African American GFR(CKD) 90.9 (60.0-200.0); Potassium 4.5 mmol/L (3.5-5.5); Total Bilirubin 0.3 mg/dL (0.3-1.2)
[2021-01-27 02:33] LABS: Folate, Serum 7.1 ng/mL
[2021-01-28 13:06] LABS: Vit B1(Thiamine) 53 ug/L (38-122)
[2021-02-01 22:04] LABS: Nicotinamide 21 ng/mL; Nicotinic Acid None Detected; Nicotinuric Acid None Detected
== END | disposition home or self-care (01) ==
LOC: LABWHC1 12:51
PROVIDERS: ATTEND Nurse Practitioner Family
DX: G35 Multiple sclerosis (principal)
CPT/HCPCS: 36415; 80053; 82306; 82607; 82746; 84207; 84425; 84591; 85025

== ENCOUNTER 2021-06-14 13:53 | Emergency (ER) | payer MEDICARE, OTHER ==
[2021-06-14 14:41] VITALS: BP 108/81; PULSE 85; RESP 20; TEMP 97.7
--- NOTE | 2021-06-14 16:14 | ED ---
Fall HPI - General Chief Complaint: Fall Stated Complaint: [facility]-Fall w/head and shoulder injury Time Seen by Provider: 06/14/21 15:37 Source: patient Mode of arrival: ambulatory - History of Present Illness Initial Comments: Patient is a 41-year-old female who presents after a fall this morning. She was walking outside of her work when she slipped on ice and fell onto her back, hitting her head on the pavement. Patient denies dizziness, chest pain, shortness of breath, and visual symptoms before the fall. No LOC. No blood thinners. Patient was able to ambulate after and reported to the ED due to pain. Patient reports a bilateral, throbbing headache in the posterior aspect of the head, 10/10 in severity. She also reports right scapular pain, bilateral thoracic pain, and lumbosacral pain. She denies fever, chills, chest pain, shortness of breath, abdominal pain, saddle anesthesia, urinary retention, urinary incontinence. - Related Data Home Medications Medication Instructions Recorded Confirmed Ibuprofen [Motrin] 800 mg PO BID PRN 10/06/13 01/02/20 Dimethyl Fumarate [Tecfidera] 240 mg PO BID 03/23/14 01/02/20 Previous Rx's Medication Instructions Recorded Hydrocodone/Acetaminophen [[place] 1 each PO Q6HR PRN #21 tab 01/02/20 5-325] Ibuprofen [Motrin] 800 mg PO Q6HR #30 tab 06/14/21 Allergies Allergy/AdvReac Type Severity Reaction Status Date / Time hydrocodone bitartrate Allergy Intermediate Nausea & Verified 06/14/21 14:39 [From Lortab] Vomiting & Diarrhea oxycodone HCl [From Percocet] Allergy Intermediate Nausea & Verified 06/14/21 14:39 Vomiting & Diarrhea prednisone AdvReac Nausea & Verified 06/14/21 14:39 Vomiting Review of Systems ROS Statement: Those systems with pertinent positive or pertinent negative responses have been documented in the HPI. ROS Other: All systems not noted in ROS Statement are negative. Past Medical History Past Medical History: Neurologic Disorder, Rheumatoid Arthritis (RA) Additional Past Medical History / Comment(s): MS History of Any Multi-Drug Resistant Organisms: None Reported Past Surgical History: Appendectomy, Hysterectomy, Orthopedic Surgery, Tubal Ligation Additional Past Surgical History / Comment(s): 3 surgeries left knee removal abdominal tumor under left breast as infant Past Psychological History: No Psychological Hx Reported Smoking Status: Current every day smoker Past Alcohol Use History: None Reported Past Drug Use History: None Reported General Exam Limitations: no limitations General appearance: alert, in no apparent distress Head exam: Present: atraumatic Eye exam: Present: normal appearance, PERRL, EOMI. Absent: scleral icterus, conjunctival injection, periorbital swelling Neck exam: Present: normal inspection, full ROM. Absent: tenderness, meningismus, lymphadenopathy Respiratory exam: Present: normal lung sounds bilaterally. Absent: respiratory distress, wheezes, rales, rhonchi, stridor Cardiovascular Exam: Present: regular rate, normal rhythm, normal heart sounds. Absent: systolic murmur, diastolic murmur, rubs, gallop, clicks GI/Abdominal exam: Present: soft, normal bowel sounds. Absent: distended, tenderness, guarding, rebound, rigid Extremities exam: Present: normal inspection, full ROM, normal capillary refill. Absent: tenderness, pedal edema, joint swelling, calf tenderness Back exam: Present: full ROM, tenderness (b/l thoracic and lumbrosacral joint), vertebral tenderness. Absent: CVA tenderness (R), CVA tenderness (L), muscle spasm, paraspinal tenderness, rash noted Neurological exam: Present: alert, oriented X3, CN II-XII intact Psychiatric exam: Present: normal affect, normal mood Skin exam: Present: warm, dry, intact, normal color. Absent: rash Course Vital Signs 06/14/21 14:39 Temperature 97.7 F Pulse Rate 85 Respiratory 20 Rate Blood Pressure 108/81 O2 Sat by Pulse 97 Oximetry Medical Decision Making - Medical Decision Making This is a 41-year-old female who presents to the emergency department due to a fall on her back and head. Patient looks well and is sitting on the bed in the [place]. Vitals are stable. CT brain and C-spine without contrast shows no evidence for acute fracture or subluxation of the cervical spine. Chest x-ray reveals no acute cardiopulmonary disease process. No acute osseous pathology. Right scapular x-ray reveals no acute osseous pathology. Lumbar sacral spine x- ray reveals no acute process, no significant change from 2015. Sacrum and coccyx x-ray reveals no definitive evidence for acute osseous pathology. Patient discharged with pain medication. Return parameters discussed. Return to the emergency department if there are concerning, new, or worsening symptoms. Disposition Clinical Impression: Fall Disposition: HOME SELF-CARE Condition: Good Instructions (If sedation given, give patient instructions): Fall Prevention (ED) Additional Instructions: Take medication as prescribed. Return to the emergency department if turning, new, worsening symptoms. Prescriptions: Ibuprofen [Motrin] 800 mg PO Q6HR #30 tab Is patient prescribed a controlled substance at d/c from ED?: No Referrals: Vince Lindsey [Primary Care Provider] - 1-2 days Time of Disposition: 17:36
[2021-06-14] MEDS ORDERED: MORPHINE SULFATE 2 MG/ML SYRINGE IVP ONE (16:19)
[2021-06-14] MEDS ORDERED: ONDANSETRON 4 MG/2 ML VIAL IVP STA (16:22)
--- NOTE | 2021-06-14 16:24 | CT ---
EXAMINATION TYPE: CT brain derian gary DATE OF EXAM: 06/14/2021 COMPARISON: 10/23/2009 HISTORY: Fall, hit head CT DLP: 1122.[address] Brain: Unenhanced CT of the brain was performed. The ventricles, basal cisterns and sulci overlying the cerebral convexities demonstrate a normal appe arance. There is no evidence for intracranial hemorrhage or sulcal effacement. No mass effects are seen. If symptoms persist consider MRI. Osseous calvarium is intact. IMPRESSION: No acute intracranial process CT Cervical Spine: Unenhanced CT of the cervical spine was performed with bone and soft tissue window settings submitted . Coronal and sagittal reconstruction is obtained. There is normal alignment and prevertebral soft tissues. I do not see evidence for fracture or sublu xation. No significant degenerative changes are present. The lung apices are clear. IMPRESSION: No evidence for acute fracture or subluxation of the cervical spine.
[2021-06-14] MEDS ORDERED: ONDANSETRON 4 MG TAB PO STA (16:33)
[2021-06-14] MEDS ORDERED: MORPHINE SULFATE 2 MG/ML SYRINGE IM ONE (16:33)
--- NOTE | 2021-06-14 17:06 | XR ---
EXAMINATION TYPE: XR chest 2V DATE OF EXAM: 06/14/2021 4:41 PM COMPARISON:Chest radiographs from 04/03/2019 TECHNIQUE: Frontal and lateral views of the chest. CLINICAL INDICATION:Female, 41 years old with history of fall with back pain ; FINDINGS: Lungs/Pleura: There is no evidence of pleural effusion, focal consolidation, or pneumothorax. Pulmonary vascularity: Unremarkable. Heart/mediastinum: Cardiomediastinal silhouette is unremarkable. Musculoskeletal:No acute osseous pathology. Other: Surgical clips in the left neck. IMPRESSION: No acute cardiopulmonary disease/process.
--- NOTE | 2021-06-14 17:08 | XR ---
EXAMINATION TYPE: XR scapula RT DATE OF EXAM: 06/14/2021 4:41 PM INDICATION: Patient age:Female; 41 years old; Reason for study: right scapular pain; COMPARISON: None TECHNIQUE: The left scapula was examined in AP, internally rotated and axillary projections. FINDINGS: No evidence of acute osseous pathology, joint dislocation, or soft tissue swelling. The remaining por tions of the visualized chest are unremarkable. IMPRESSION: No acute osseous pathology.
--- NOTE | 2021-06-14 17:29 | XR ---
EXAMINATION TYPE: XR lumbosacral spine min 4V DATE OF EXAM: 06/14/2021 4:41 PM INDICATION: Patient age:Female; 41 years old; Reason for study: fall on back ; COMPARISON: 06/05/2014. TECHNIQUE: The lumbar spine was examined in 2 views. FINDINGS: No evidence of any acute osseous pathology. No evidence of loss of vertebral body height i s seen. There is normal alignment of the lumbar vertebral bodies. IMPRESSION: No acute process no significant change from 2014.
--- NOTE | 2021-06-14 17:30 | XR ---
EXAMINATION TYPE: XR sacrum coccyx DATE OF EXAM: 06/14/2021 4:41 PM INDICATION: Patient age:Female; 41 years old; Reason for study: lower tailbone pain;. COMPARISON: 06/05/2014 TECHNIQUE: The sacrum was examined in a single projection. FINDINGS: There is no evidence of fracture or dislocation. There is no soft tissue abnormality. No i ntra-abdominal or pelvic calcifications are noted. Surgical clip within the left pelvis. IMPRESSION: No definitive evidence for acute osseous pathology.
== END 2021-06-14 17:48 | disposition home or self-care (01) ==
LOC: EC 13:53
DX: R51.9 Headache, unspecified (principal); F17.200 Nicotine dependence, unspecified, uncomplicated; Z88.5 Allergy status to narcotic agent; Z98.51 Tubal ligation status; Z90.49 Acquired absence of other specified parts of digestive tract; Z90.710 Acquired absence of both cervix and uterus
CPT/HCPCS: 99284; 96372; 72110; 72220; 73010; 71046; 72125; 70450; J2270

== ENCOUNTER → 2021-08-01 | Outpatient (CLI) | payer MEDICARE, OTHER ==
[2021-08-01 21:21] LABS: ALT 12 U/L (8-44); AST 12 U/L (13-35); Albumin 4.3 g/dL (3.8-4.9); Albumin/Globulin Ratio 2.05 (1.60-3.17); Alkaline Phosphatase 82 U/L (41-126); Blood Urea Nitrogen 15.4 mg/dL (9.0-27.0); Calcium 9.1 mg/dL (8.7-10.3); Carbon Dioxide 27.7 mmol/L (20.0-27.5); Chloride 102 mmol/L (96-109); Globulin 2.1 g/dL (1.6-3.3); Glucose 95 mg/dL (70-110); Non-African American GFR(CKD) 106.1 (60.0-200.0); Potassium 4.7 mmol/L (3.5-5.5); Sodium 138 mmol/L (135-145); Total Bilirubin <0.15 mg/dL (0.30-1.20); Total Protein 6.4 g/dL (6.2-8.2)
== END | disposition home or self-care (01) ==
LOC: LABWHC1 13:52
PROVIDERS: ATTEND Psychiatry & Neurology Neurology
DX: Z51.81 Encounter for therapeutic drug level monitoring (principal); E55.9 Vitamin D deficiency, unspecified; G35 Multiple sclerosis
CPT/HCPCS: 36415; 80053; 82306

== ENCOUNTER 2021-08-12 19:17 | Emergency (ER) | payer MEDICARE, OTHER ==
--- NOTE | 2021-08-12 21:33 | ED ---
ENT HPI - General Chief complaint: ENT Stated complaint: Cough, Congestion Time Seen by Provider: 08/12/21 21:30 Source: patient, RN notes reviewed Mode of arrival: ambulatory - History of Present Illness Initial comments: This is a pleasant 41-year-old female who presents to emergency department complaining of cough, stuffy nose, sinus headache, and some arthralgias. Patient mainly complaining of pain in the left hip area although she denies any injury. She is able to ambulate. Patient states she went to an ER last Sunday and was tested for COVID-19. Patient cannot negative and was told it was a viral illness. Patient testing positive today. Patient does have a history of MS and is on a immunosuppressive medication. She is denying any fever today. She denies any shortness of breath. no changes in vision or hearing, no sore throat or difficulty with speech, no neck pain, no chest pain or shortness of breath, no abdominal pain, no nausea or vomiting, no changes in urination or bowel movements, no numbness or tingling, , no skin rashes or lesions. Patient has a snf cigarette smoker. - Related Data Home Medications Medication Instructions Recorded Confirmed Ibuprofen [Motrin] 800 mg PO BID PRN 10/06/13 01/02/20 Dimethyl Fumarate [Tecfidera] 240 mg PO BID 03/23/14 01/02/20 Previous Rx's Medication Instructions Recorded Hydrocodone/Acetaminophen [[place] 1 each PO Q6HR PRN #21 tab 01/02/20 5-325] Ibuprofen [Motrin] 800 mg PO Q6HR #30 tab 06/14/21 Albuterol Sulfate [Albuterol 2 puff PO Q6H #8.5 gm 08/12/21 Sulfate Hfa] Allergies Allergy/AdvReac Type Severity Reaction Status Date / Time hydrocodone bitartrate Allergy Intermediate Nausea & Verified 08/12/21 20:02 [From Lortab] Vomiting & Diarrhea oxycodone HCl [From Percocet] Allergy Intermediate Nausea & Verified 08/12/21 20 :02 Vomiting & Diarrhea prednisone AdvReac Nausea & Verified 08/12/21 20:02 Vomiting Review of Systems ROS Statement: Those systems with pertinent positive or pertinent negative responses have been documented in the HPI. ROS Other: All systems not noted in ROS Statement are negative. Past Medical History Past Medical History: Neurologic Disorder, Rheumatoid Arthritis (RA) Additional Past Medical History / Comment(s): MS History of Any Multi-Drug Resistant Organisms: None Reported Past Surgical History: Appendectomy, Hysterectomy, Orthopedic Surgery, Tubal Ligation Additional Past Surgical History / Comment(s): 3 surgeries left knee removal abdominal tumor under left breast as infant Past Psychological History: No Psychological Hx Reported Smoking Status: Current every day smoker Past Alcohol Use History: None Reported Past Drug Use History: None Reported General Exam - General Exam Comments Initial Comments: vital signs stable, patient afebrile. Patient does not appear to be toxic. General appearance: alert, in no apparent distress Head exam: Present: atraumatic, normocephalic, normal inspection Eye exam: Present: normal appearance, PERRL, EOMI. Absent: scleral icterus, conjunctival injection, periorbital swelling ENT exam: Present: normal exam, mucous membranes moist, TM's normal bilaterally, normal external ear exam Neck exam: Present: normal inspection. Absent: tenderness, meningismus, lymphadenopathy Respiratory exam: Present: normal lung sounds bilaterally. Absent: respiratory distress, wheezes, rales, rhonchi, stridor Cardiovascular Exam: Present: regular rate, normal rhythm, normal heart sounds. Absent: systolic murmur, diastolic murmur, rubs, gallop, clicks GI/Abdominal exam: Present: soft, normal bowel sounds. Absent: distended, tenderness, guarding, rebound, rigid Extremities exam: Present: normal inspection, full ROM, normal capillary refill. Absent: tenderness, pedal edema, joint swelling, calf tenderness Back exam: Present: normal inspection Neurological exam: Present: alert, oriented X3, CN II-XII intact Psychiatric exam: Present: normal affect, normal mood Skin exam: Present: warm, dry, intact, normal color. Absent: rash Course Vital Signs 08/12/21 19:59 Temperature 97.4 F L Pulse Rate 79 Respiratory 18 Rate Blood Pressure 106/76 O2 Sat by Pulse 98 Oximetry Medical Decision Making - Medical Decision Making I did recommend a monoclonal antibody is patient is on view [place] for multiple sclerosis which is an immunosuppressive medication. Patient is refusing this modality. Patient was told to return to the ER for any signs or symptoms worsen. Told to return immediately if any other problems arise. All questions answered. Treatment plan discussed. Patient in agreement Every effort has been made to ensure accuracy of this dictation. However, due to the limitations of electronic medical records and dictation devices, errors in charting still occur. Patient counseled extensively on quarantine measures. Since she is still symptomatic we'll have her quarantine for another 5 days, advised masque wearing for an additional 5 days after that. - Lab Data Lab Results 08/12/21 Range/Units 20:16 Coronavirus (PCR) Detected A (Not Detectd) Disposition Clinical Impression: COVID-19, Arthralgia, Left hip pain Disposition: HOME SELF-CARE Condition: Stable Instructions (If sedation given, give patient instructions): COVID-19 (Coronavirus Disease 2019) (ED), How to Stop Smoking (ED) Additional Instructions: SELF QUARANTINE DISCHARGE: As you are at risk for symptoms due to coronavirus, please stay home and stay away from others as much as possible. Please maintain social distance of 6 feet if possible. You should not return to work until at least 3 days (72 hours) have passed since recovery of symptoms. This defined as resolution of fever without the use of fever reducing medicines and improvement in respiratory symptoms (e.g,, cough, shortness of breath) Isolation can end at least 5 days after symptom onset and after fever ends for 24 hours (without the use of fever-reducing medication) and symptoms are improving, if these people can continue to properly wear a well-fitted mask around others for 5 more days after the 5-day isolation period. If you're still having symptoms at the end of 5 day period, isolate for an additional 5 days. More information about what to do if you are sick can be found on the CDC website at https://www.cdc.gov/coronavirus/2019-ncov/qj-yly-vex-sick/tnqmm-htlw-wrcb.html Expect the symptoms to last for 7-14 days from onset. Use acetaminophen (Tylenol) as needed for discomfort. You can take a maximum of 1 gram every 6 hours for discomfort, with your total dose in 24 hours not exceeding 4 grams. Be sure to maintain hydration. Drink continuous water and/or items high in vitamin C, such as orange juice and/or lemonade. Unless you have high blood pressure, you may consider Sudafed (which is yihs-ljx-mgntsse) for nasal congestion. I would suggest that a short acting Sudafed rather than the 24 hour Sudafed. For a cough you may take Mucinex or Robitussin. Also consider the use of Vicks Vapor Rub or your chest when you sleep. Use a humidifier that is cleaned frequently, in the bedroom at night. For Nausea /Vomiting/Diarrhea associated with your Illness: o Small frequent sips of room temperature liquids. o Diet: [place] Foods - If you are still experiencing discomfort and/or nausea please slowly advancing your diet using the BRAT Diet = bananas, rice, apples/apple sauce, toast. o With diarrhea avoid any dairy for 48 hours after symptoms resolved. o Continue with activity as tolerated. If your symptoms do get worse and you believe that the upper respiratory infection has developed into something else, such as pneumonia or severe dehydration, please return to the emergency department or follow-up with your primary care. But expect to be symptomatic for the days as indicated above Prescriptions: Albuterol Sulfate [Albuterol Sulfate Hfa] 2 puff PO Q6H #8.5 gm Is patient prescribed a controlled substance at d/c from ED?: No Referrals: Vince Lindsey [Primary Care Provider] - 08/26/21 Time of Disposition: 22:40
--- NOTE | 2021-08-12 22:07 | XR ---
EXAMINATION TYPE: XR Hip LT and AP Pelvis DATE OF EXAM: 08/12/2021 COMPARISON: NONE HISTORY: Cough and congestion Hip pain TECHNIQUE: 3 views FINDINGS: Pelvic ring is intact proximal femurs and hip joints are intact. Sacroiliac joints are norm al. Left hip joint space is normal. IMPRESSION: Normal left hip exam.
--- NOTE | 2021-08-12 22:09 | XR ---
EXAMINATION TYPE: XR chest 2V DATE OF EXAM: 08/12/2021 COMPARISON: 06/14/2021 HISTORY: Pain TECHNIQUE: 2 views FINDINGS: There is no heart failure nor confluent pneumonic infiltrate costophrenic angles are clear. There are no hilar masses. There are surgical clips on the left side of the neck. Bony thorax is int act IMPRESSION: No active cardiopulmonary disease. No change.
[2021-08-12 22:48] VITALS: BP 110/72; PULSE 78; RESP 22; TEMP 97.7
== END 2021-08-12 22:48 | disposition home or self-care (01) ==
LOC: EC 19:17
DX: U07.1 COVID-19 (principal); M25.552 Pain in left hip; M06.9 Rheumatoid arthritis, unspecified; F17.200 Nicotine dependence, unspecified, uncomplicated; Z79.899 Other long term (current) drug therapy
CPT/HCPCS: 71046; 73502; 87635; 99284

== ENCOUNTER 2021-09-03 10:43 | Emergency (ER) | payer MEDICARE, OTHER ==
--- NOTE | 2021-09-03 11:25 | ED ---
General Adult HPI - General Chief complaint: ENT Stated complaint: ear infection Time Seen by Provider: 09/03/21 10:54 Source: patient, RN notes reviewed Mode of arrival: ambulatory Limitations: no limitations - History of Present Illness Initial comments: 41-year-old female presents emergency Department with chief complaint of sinus pressure right-sided facial pain, right ear pain. Patient states that this has been going on for a few days. Patient states she's been some drainage from her right ear states his pressure in her cheeks which has been swelling. Patient denies any noted fever but states that she's had some chills. She's tried kyzh-kno-hybdphm medications with no relief. No pain from dentition, difficulty swallowing no shortness of breath. - Related Data Home Medications Medication Instructions Recorded Confirmed Ibuprofen [Motrin] 800 mg PO BID PRN 10/06/13 01/02/20 Dimethyl Fumarate [Tecfidera] 240 mg PO BID 03/23/14 01/02/20 Previous Rx's Medication Instructions Recorded Hydrocodone/Acetaminophen [[place] 1 each PO Q6HR PRN #21 tab 01/02/20 5-325] Ibuprofen [Motrin] 800 mg PO Q6HR #30 tab 06/14/21 Albuterol Sulfate [Albuterol 2 puff PO Q6H #8.5 gm 08/12/21 Sulfate Hfa] Amoxicillin/Potassium Clav 1 tab PO Q12HR #20 tab 09/03/21 [Augmentin 875-125 Tablet] Allergies Allergy/AdvReac Type Severity Reaction Status Date / Time hydrocodone bitartrate Allergy Intermediate Nausea & Verified 09/03/21 10:48 [From Lortab] Vomiting & Diarrhea oxycodone HCl [From Percocet] Allergy Intermediate Nausea & Verified 09/03/21 10:48 Vomiting & Diarrhea prednisone AdvReac Nausea & Verified 09/03/21 10:48 Vomiting Review of Systems ROS Statement: Those systems with pertinent positive or pertinent negative responses have been documented in the HPI. ROS Other: All systems not noted in ROS Statement are negative. Past Medical History Past Medical History: Neurologic Disorder, Rheumatoid Arthritis (RA) Additional Past Medical History / Comment(s): MS History of Any Multi-Drug Resistant Organisms: None Reported Past Surgical History: Appendectomy, Hysterectomy, Orthopedic Surgery, Tubal Ligation Additional Past Surgical History / Comment(s): 3 surgeries left knee removal abdominal tumor under left breast as Past Psychological History: No Psychological Hx Reported Smoking Status: Current every day smoker Past Alcohol Use History: None Reported Past Drug Use History: None Reported General Exam Limitations: no limitations General appearance: alert, in no apparent distress Head exam: Present: atraumatic, normocephalic, normal inspection Eye exam: Present: normal appearance, PERRL, EOMI. Absent: scleral icterus, conjunctival injection, periorbital swelling ENT exam: Present: mucous membranes moist. Absent: normal oropharynx (Poor dentition), TM's normal bilaterally (Mild cerumen right EAC, mild erythema), normal external ear exam Neck exam: Present: normal inspection, full ROM. Absent: tenderness, meningismus, lymphadenopathy Respiratory exam: Present: normal lung sounds bilaterally. Absent: respiratory distress, wheezes, rales, rhonchi, stridor Cardiovascular Exam: Present: regular rate, normal rhythm, normal heart sounds. Absent: systolic murmur, diastolic murmur, rubs, gallop, clicks Course Vital Signs 09/03/21 10:47 Temperature 98.4 F Pulse Rate 72 Respiratory 18 Rate Blood Pressure 128/89 O2 Sat by Pulse 97 Oximetry Procedures - Ear Wax Removal Right Ear Cerumenolytic Used: 5-10% Sodium Bicarb solution Ear Canal Irrigated by: RN, other (PA) Ear Canal Irrigated With: warm saline with H2O2 using syringe/angiocath TM Visible: TM(s) erythematous Patient Tolerated Procedure: well, no complications Complications: no problems Medical Decision Making - Medical Decision Making 41-year-old presented sinus, ear/pressure. Patient has acute sinusitis, otitis media. Patient history of infection which was irrigated. Patient will be discharged on oral antibiotic continue [id number] decongestants and return parameters were discussed. Disposition Clinical Impression: Sinusitis, Otitis media, Cerumen impaction Disposition: HOME SELF-CARE Condition: Stable Instructions (If sedation given, give patient instructions): Earache (ED) Additional Instructions: Please return to the Emergency Department if symptoms worsen or any other concerns. Prescriptions: Amoxicillin/Potassium Clav [Augmentin 875-125 Tablet] 1 tab PO Q12HR #20 tab Is patient prescribed a controlled substance at d/c from ED?: No Referrals: Vince Lindsey [Primary Care Provider] - 1-2 days Time of Disposition: 11:59
[2021-09-03 12:08] VITALS: BP 121/78; PULSE 81; RESP 16; TEMP 98.1
== END 2021-09-03 12:05 | disposition home or self-care (01) ==
LOC: EC 10:43
DX: J32.9 Chronic sinusitis, unspecified (principal); H66.91 Otitis media, unspecified, right ear; H61.21 Impacted cerumen, right ear; F17.200 Nicotine dependence, unspecified, uncomplicated; Z88.8 Allergy status to other drugs, medicaments and biological substances; Z88.5 Allergy status to narcotic agent
CPT/HCPCS: 99283

== ENCOUNTER → 2021-11-09 | Outpatient (CLI) | payer MEDICARE, OTHER ==
--- NOTE | 2021-11-09 21:29 | CT ---
EXAMINATION TYPE: CT sinus wo con DATE OF EXAM: 11/09/2021 COMPARISON: CT dated 06/14/2021 HISTORY: chronic sinusitis, left side blockage. CT DLP: 655 mGycm. Automated Exposure Control for Dose Reduction was Utilized. TECHNIQUE: CT scan of the sinuses is performed without contrast, axial images are obtained, coronal r eformatted images are also reviewed. FINDINGS: Markedly deviated bony nasal septum convex to the left side inferiorly with a bony spur. Associated r emodeling of the left inferior turbinate. Paradoxical middle turbinates. Pneumatization of the left v ertical lamella. Grossly unremarkable right inferior turbinate. No significant mucosal thickening of the nasal fossa bilaterally. Obstructed infundibulum bilaterally by mucosal thickening. Clear ostiomeatal complex bilaterally. Sig nificant circumferential mucosal thickening of the maxillary sinuses. Mild mucosal thickening of the ethmoid air cells, most evident involving the left anterior cells. Mild mucosal thickening of the rig ht sphenoid sinus compartment. Clear frontal sinus. Apparently obstructed sphenoethmoidal recesses by mucosal thickening. Clear visu alized mastoid air cells. Degenerative changes of the temporomandibular joints versus arthritic rosenbaum es, please correlate clinically. Unremarkable visualized portion of the brain and orbits. IMPRESSION: Chronic paranasal sinusitis sparing the frontal sinus and most evident involving the maxillary sinuse s as detailed above. Markedly dilated bony nasal septum convex to the left side inferiorly as described above. Please jaja elate clinically. Other findings as described above.
== END | disposition home or self-care (01) ==
LOC: RADCTMAIN 18:07
PROVIDERS: ATTEND Otolaryngology
DX: J32.4 Chronic pansinusitis (principal)
CPT/HCPCS: 70486

== ENCOUNTER → 2022-04-24 | Outpatient (CLI) | payer MEDICARE, OTHER ==
--- NOTE | 2022-04-24 13:59 | XR ---
EXAMINATION TYPE: XR chest 2V DATE OF EXAM: 04/24/2022 COMPARISON: 08/12/2021 TECHNIQUE: PA and lateral views submitted. HISTORY: Chest pain FINDINGS: The lungs are clear and there is no pneumothorax, pleural effusion, or focal pneumonia. Hyperinflat ion of the lungs. Postsurgical change along the soft tissues of left neck and lung apex. There is a r ib deformity involving the lateral and anterior margin left fourth rib stable from prior exam. No ove rt failure. Heart size normal. Hyperinflation suggests COPD. Curvature of the spine compatible scolio sis. IMPRESSION: 1. COPD with no definite acute process. Chronic appearing rib cage form in the left stable from prior exam..
== END | disposition home or self-care (01) ==
LOC: RADXRMAIN 13:36
PROVIDERS: ATTEND Family Medicine
DX: J44.9 Chronic obstructive pulmonary disease, unspecified (principal); R09.1 Pleurisy
CPT/HCPCS: 71046

== ENCOUNTER → 2022-05-08 | Outpatient (CLI) | payer MEDICARE, OTHER ==
[2022-05-08 09:50] VITALS: BP 118/79; PULSE 75; RESP 18; TEMP 97.5
--- NOTE | 2022-05-08 14:59 | P.PAINPG ---
PQRS Measure Charge Sheet Comment: HISTORY OF PRESENT ILLNESS: 42 yr old female as a referral from [facility] presents today w severe and chronic LBP secondary to disc herniations, DDD and facet arthropathy without myelopathy for evaluation. Pt states pain level is at 8 /10 in intensity, constant, localized in the lower aspect of the lumbar spine where it meets the tailbone, sharp/throbbing in character w occasional shooting pain towards the left knee. Pain is provoked by bending, twisting, lifting. Pain is alleviated by medication (ibuprofen), PT which she is currently in, heat, reclining and rest. PMH: MS, RA, OA PSH: Colonoscopy (2013), Appendectomy, Hysterectomy, L Knee Surgery, Tubal Ligation SH: Daily tobacco use, No ETOH abuse, No illicit drug use FH: Non contributory All: See list Meds: See list REVIEW OF ORGAN SYSTEMS: CONSTITUTIONAL: No fevers or chills. No recent weight loss. NEUROLOGICAL: + numbness and tingling along the distal extremities. No seizure disorders or headaches. MUSCULOSKELETAL: + pain PSYCHIATRIC: Denies current depression or suicidal thoughts. Physical Examinations : Constitutional : Cooperative , not in acute distress . Neurologic : Cranial nerve II to XII intact. No focal neurological deficits. Psychiatric : alert & oriented x 3. Matching mood & appropriate affect. Judgment & insight intact. Musculoskeletal : Cervical Spine Motor strength in the deltoid and biceps: Normal right side. Normal Left side Motor strength biceps and the wrist extensors: Normal right side . Normal left side Motor strength in the triceps muscle: Normal right side. Normal left side Deep tendon reflexes: Normal at the biceps. Normal at Brachioradialis. Normal at triceps Vertebral body tenderness to deep palpation over Cervical facet loading test: positive bilaterally Spurling test: positive bilaterally Neck distraction test: positive bilaterally Sravanthi sign: positive bilaterally Lumbar spine Motor strength lower extremities ,thigh and legs 5/5 Right side , 5/5 Left side Deep tendon reflexes : Normal Knee Jerk. Normal Ankle Jerk Vertebral body tenderness over L5 Lumbar facet Loading Test: positive Right / positive Left Range of motion of the lumbar spine Flexion 30 degrees, extension 10 degrees Straight Leg Raise test: Left/ Right positive at degree Adele test: positive right / positive left. Severe tenderness over the Sacroiliac joint on the Right / Left sides Gaenslen test: positive bilaterally Seated flexion test: positive bilaterally. Sacral spine : Severe tenderness over the Sacroiliac joint: right side / left side Range of motion: Flexion of the lumbar spine <60 degrees Range of motion: Extension of the lumbar spine <20 degrees Gaenslen's Test positive Guilherme's Test positive Adele test: positive right side / left side Thigh Thrust Test Sacral Thrust Test Imaging: MRI without contrast of the lumbar spine from 03/20/22 reviewed Assessment/ Plan : Lumbar disc herniation, Lumbar DDD Recommendation of MARGARET L5-S1 #1. May need a series of injections, up to 3 within a 6 mo period, for optimal pain relief. Risks, benefits of procedure discussed and patient verbalized understanding. Admits to aspirin or anti- coagulant use or medical history of diabetes. Protocol for discontinuation/ continuation of medications vivien procedure discussed. All questions answered. I have spent greater than 30 minutes on patient care today. Dr Ramirez was available by phone for the evaluation of this patient. The time was used to review the medical records including relevant urine studies and Prescription history (MAPs), review of the available imaging, evaluation and examination of the patient, coordination of care with the medical staff and if applicable referring physicians, as well as creation of the medical record PQRS Narrative: Smoking Status Current every day smoker Home Medications: Ambulatory Orders Ibuprofen [Motrin] 800 mg PO BID PRN 10/06/13 Dimethyl Fumarate [Tecfidera] 240 mg PO BID 03/23/14 Hydrocodone/Acetaminophen [Wilbur 5-325] 1 each PO Q6HR PRN #21 tab 01/02/20 Ibuprofen [Motrin] 800 mg PO Q6HR #30 tab 06/14/21 Albuterol Sulfate [Albuterol Sulfate Hfa] 2 puff PO Q6H #8.5 gm 08/12/21 Amoxicillin/Potassium Clav [Augmentin 875-125 Tablet] 1 tab PO Q12HR #20 tab 09/03/21 Controlled Substance Measures - Controlled Substance Measures Is patient prescribed a controlled substance at discharge?: No
== END ==
LOC: PNWHC3 08:38
PROVIDERS: ATTEND Specialist
DX: M51.36 Other intervertebral disc degeneration, lumbar region (principal); M51.26 Other intervertebral disc displacement, lumbar region; Z88.5 Allergy status to narcotic agent; Z88.8 Allergy status to other drugs, medicaments and biological substances; F17.200 Nicotine dependence, unspecified, uncomplicated
CPT/HCPCS: 99211

== ENCOUNTER → 2022-06-06 | Outpatient (CLI) | payer MEDICARE, OTHER ==
--- NOTE | 2022-06-06 11:42 | CT ---
EXAMINATION TYPE: CT chest wo con CT DLP: 240 mGycm, Automated exposure control for dose reduction was used. DATE OF EXAM: 06/06/2022 11:33 AM COMPARISON: Chest radiograph 04/24/2022. CLINICAL INDICATION:Female, 42 years old with history of R07.9 chest pain, R06.02 shortness of breath ; PHH, Bilateral lower rib pain and shortness of breath. TECHNIQUE: Multiple axial images were obtained through the chest without IV contrast. Lack of IV or o ral contrast limits evaluation of solid and hollow organ viscera. FINDINGS: LUNGS/ PLEURA: Minimal biapical pleural parenchymal scarring . Left anterior upper lobe 5 mm pulmona ry nodule (series 4, image 13). Anterior right upper lobe 4 mm pulmonary nodule (series 4, image 27). No pneumothorax, pleural effusion, or focal consolidation. Mild emphysematous changes. AIRWAY: Patent and unremarkable.. HEART: Size within normal limits. No pericardial effusion. MEDIASTINUM: No gross evidence of adenopathy. Few nonenlarged right hilar calcified granulomas. VASCULATURE: No aortic aneurysm. MUSCULOSKELETAL: No acute osseous abnormalities. Remote left-sided rib fractures. SOFT TISSUES/LYMPH NODES: No axillary adenopathy. Post surgical changes demonstrated in the left supr aclavicular region. LOWER NECK: No significant findings. UPPER ABDOMEN: No significant findings. IMPRESSION: 1. No acute thoracic process. 2. A couple of pulmonary nodules with largest measuring up to 5 mm. Incidentally detected nodules of this size are generally considered benign in individuals without concomitant risk factors such as smo billy history or other risk factors for malignancy. Follow up imaging is generally not performed, in a ccordance with Fleischner Society guidelines. In high-risk patients, a [address] thorax c an be considered. 3. Mild emphysematous changes.
== END | disposition home or self-care (01) ==
LOC: RADCTMAIN 11:17
PROVIDERS: ATTEND Family Medicine
DX: J43.9 Emphysema, unspecified (principal); R91.8 Other nonspecific abnormal finding of lung field
CPT/HCPCS: 71250

== ENCOUNTER 2022-06-08 11:16 | Day surgery (SDC) | payer MEDICARE, OTHER ==
[2022-06-08] MEDS ORDERED: LIDOCAINE 1% (10MG/ML) FOR IV START INTRADERMA PRN (11:30)
[2022-06-08] MEDS ORDERED: LACTATED RINGERS 1,000 ML IV SCH (11:30)
[2022-06-08 11:37] VITALS: RESP 16; TEMP 97.2
[2022-06-08] MEDS ORDERED: methylPREDNISolone ACETATE 40 MG/ML 1 ML VIAL ONE (12:24)
[2022-06-08] MEDS ORDERED: fentaNYL (PF) 50 MCG/ML 2 ML AMP ONE (12:24)
[2022-06-08] MEDS ORDERED: IOPAMIDOL M200 10 ML VIAL ONE (12:24)
[2022-06-08] MEDS ORDERED: MIDAZOLAM 2 MG/2 ML VIAL ONE (12:24)
--- NOTE | 2022-06-08 12:34 | P.PCN ---
Date of Procedure: 06/08/22 Procedure(s) Performed: PREOPERATIVE DIAGNOSIS: 1- Lumbar Degenerative Disc Diseases 2-Lumbar spondylosis with Facet arthropathy without myelopathy. POSTOPERATIVE DIAGNOSIS: Same as preop diagnosis. PROCEDURE 1. Lumbar epidural steroid injection under fluoroscopic guidance at the L5-S1 level. (Fluoroscopy imaging was available in radiology department) 2. Lumbar epidurogram. ANESTHESIA: moderate sedation with intravenous Versed 1 mg ,and fentanyle 50 Mcg Sedation start time : 1225 Sedation end time : 1231 EBL: Minimal PROCEDURE INDICATION: The patient with low back pain and radiculitis symptoms unresponsive to conservative treatment. Fluoroscopy was used to optimize visualization of the needle placement and to maximize safety. PROCEDURE DESCRIPTION / TECHNIQUE: The patient was seen and identified in the preoperative area. Risks, benefits, complications including but not limited to infections ,bleeding ,allergic reaction to the medications ,nerve damage and not complete pain releife , and alternatives were discussed with the patient. The patient agreed to proceed with the procedure and signed the consent. IV was started, and vital signs were stable. Patient was taken to the OR and time out was completed. The patient was placed in the prone position on procedure table and a pillow was placed under the abdomen to reduce lumbar lordosis. The lumbosacral area was prepped and draped in the usual sterile fashion.ere closely monitored during the procedure. Conscious sedation was used during the procedure to decrease patients anxiety. Vital signs was monitered during the entire procedure. Using anterior-posterior fluoroscopy, the L5-S1 interlaminar space was identified and the skin over this site was marked and then infiltrated with 1% lidocaine subcutaneously. Subsequently, a 20-gauge Tuohy epidural needle was inserted and advanced toward the epidural space using the ``Loss of resistance technique and guided by AP and lateral fluoroscopy. The correct needle position in the epidural space was verified with the injection of 2 mL of the water soluble contrast dye Isovue 200 contrast and observing an excellent epidurogram with the epidural spread of the dye, after negative aspiration for blood and CSF and in the absence of paresthesias. Again after negative aspiration, a 6 ml mixture containing 40 mg of Depo-medrol ( Preservetive Free ), and 2 ml of preservative free Normal Saline, and 2 ml of preservative free lidocaine 1% solution was injected and a washout of epidurogram was seen. Needle was withdrawn intact, skin was cleansed, and bandages were applied. COMPLICATIONS: None DISPOSITION / PLANS: The patient was placed in a supine position and transferred to the recovery area in a stable condition for observation. There was no evidence of lower extremity motor or sensory deficit after the procedure. Patient was discharged from the recovery room after meeting discharge criteria. Home discharge instructions were given to the patient by the staff. The patient was reexamined prior to discharge. The patient will schedule a follow up in the clinic in 2-4 weeks.
[2022-06-08] MEDS ORDERED: IV FLUID CONTINUATION 1,000 ML IV ONE (12:37)
--- NOTE | 2022-06-08 12:43 | FL ---
EXAMINATION TYPE: FL guided pain mgmt statistic DATE OF EXAM: 06/08/2022 HISTORY: Fluoroscopy time 1 seconds of fluoroscopy provided. IMPRESSION: 1. Fluoroscopy time.
[2022-06-08 12:53] VITALS: BP 126/87; PULSE 78
== END 2022-06-08 13:08 | disposition home or self-care (01) ==
LOC: ORPAIN 11:16
PROVIDERS: ATTEND Specialist
DX: M51.16 Intervertebral disc disorders with radiculopathy, lumbar region (principal); M47.26 Other spondylosis with radiculopathy, lumbar region; Z88.8 Allergy status to other drugs, medicaments and biological substances; Z88.5 Allergy status to narcotic agent
CPT/HCPCS: 62323; J2250; J1030; J3010; Q9966

== ENCOUNTER → 2022-06-16 | Outpatient (CLI) | payer MEDICARE, OTHER ==
--- NOTE | 2022-06-16 15:31 | US ---
EXAMINATION TYPE: US gallbladder DATE OF EXAM: 06/16/2022 COMPARISON: NONE CLINICAL HISTORY: R10.84 ABD PAIN. Right upper quadrant abdomen pain x 1 month. TECHNIQUE: Multiple sonographic images of the right upper quadrant are obtained. FINDINGS: EXAM MEASUREMENTS: Liver Length: 11.3 cm Gallbladder Wall: 0.17 cm CBD: 0.47 cm Right Kidney: 9.3 x 3.2 x 4.8 cm Pancreas: wnl Liver: Hyperechoic mass medial inferior right lobe 1.1 x 0.63 x 0.74cm Gallbladder: wnl Evidence for sonographic Villarreal's sign: No CBD: wnl Right Kidney: wnl IMPRESSION: 1. A 1 cm hyperechoic area within the liver could be a hemangioma. Additional evaluation with contras t CT could be performed. Alternatively, MRI with contrast may be diagnostic. 2. Right upper quadrant ultrasound is otherwise unremarkable.
[2022-06-16 15:47] LABS: Basophils % (A) 1 %; Eosinophils # (A) 0.1 k/uL (0-0.7); Eosinophils % (A) 2 %; HCT 44.3 % (34.0-46.0); HGB 14.3 gm/dL (11.4-16.0); Lymphocytes # (A) 0.6 k/uL (1.0-4.8); Lymphocytes % (A) 9 %; MCHC 32.4 g/dL (31.0-37.0); MCV 83.5 fL (80.0-100.0); Mean Platelet Volume 9.7; Monocytes # (A) 0.4 k/uL (0-1.0); Monocytes % (A) 6 %; Neutrophils # (A) 4.9 k/uL (1.3-7.7); Neutrophils % (A) 81 %; Platelet Count 177 k/uL (150-450); RDW 14.4 % (11.5-15.5); WBC 6.1 k/uL (3.8-10.6)
[2022-06-16 15:52] LABS: Albumin 4.3 g/dL (3.5-5.0); Albumin/Globulin Ratio 1.6; Globulin 2.7 g/dL; Total Bilirubin 0.3 mg/dL (0.2-1.3)
== END | disposition home or self-care (01) ==
LOC: RADUSWWP 14:52
PROVIDERS: ATTEND Family Medicine
DX: B89 Unspecified parasitic disease (principal); K76.89 Other specified diseases of liver
CPT/HCPCS: 76705; 80076; 82150; 83690; 85025

== ENCOUNTER 2022-08-03 08:21 | Day surgery (SDC) | payer MEDICARE, OTHER ==
[~2022-08-03 08:21] MED LIST changes: -DEXAMETHASONE SOD PHOSPHATE 10 MG/ML 1 ML VIAL IV ONE; -ONDANSETRON 4 MG/2 ML VIAL IVP ONE; -SCOPOLAMINE 1.5MG/72HR PATCH TRANSDERM ONE
[2022-08-03 09:00] VITALS: RESP 16; TEMP 98
[2022-08-03] MEDS ORDERED: fentaNYL (PF) 50 MCG/ML 2 ML AMP ONE (09:14)
[2022-08-03] MEDS ORDERED: IOPAMIDOL M200 10 ML VIAL ONE (09:14)
[2022-08-03] MEDS ORDERED: MIDAZOLAM 2 MG/2 ML VIAL ONE (09:14)
[2022-08-03] MEDS ORDERED: methylPREDNISolone ACETATE 40 MG/ML 1 ML VIAL ONE (09:14)
--- NOTE | 2022-08-03 09:23 | P.PCN ---
Date of Procedure: 08/03/22 Procedure(s) Performed: PREOPERATIVE DIAGNOSIS: 1- Lumbar Degenerative Disc Diseases 2-Lumbar spondylosis with Facet arthropathy without myelopathy. POSTOPERATIVE DIAGNOSIS: Same as preop diagnosis. PROCEDURE 1. Lumbar epidural steroid injection under fluoroscopic guidance at the L5-S1 level. (Fluoroscopy imaging was available in radiology department) 2. Lumbar epidurogram. ANESTHESIA: moderate sedation with intravenous Versed 2 mg ,and fentanyle 100 Mcg Sedation start time : 914 Sedation end time : 921 EBL: Minimal PROCEDURE INDICATION: The patient with low back pain and radiculitis symptoms unresponsive to conservative treatment. Fluoroscopy was used to optimize visualization of the needle placement and to maximize safety. PROCEDURE DESCRIPTION / TECHNIQUE: The patient was seen and identified in the preoperative area. Risks, benefits, complications including but not limited to infections ,bleeding ,allergic reaction to the medications ,nerve damage and not complete pain releife , and alternatives were discussed with the patient. The patient agreed to proceed with the procedure and signed the consent. IV was started, and vital signs were stable. Patient was taken to the OR and time out was completed. The patient was placed in the prone position on procedure table and a pillow was placed under the abdomen to reduce lumbar lordosis. The lumbosacral area was prepped and draped in the usual sterile fashion.ere closely monitored during the procedure. Conscious sedation was used during the procedure to decrease patients anxiety. Vital signs was monitered during the entire procedure. Using anterior-posterior fluoroscopy, the L5-S1 interlaminar space was identified and the skin over this site was marked and then infiltrated with 1% lidocaine subcutaneously. Subsequently, a 20-gauge Tuohy epidural needle was inserted and advanced toward the epidural space using the ``Loss of resistance technique and guided by AP and lateral fluoroscopy. The correct needle position in the epidural space was verified with the injection of 2 mL of the water soluble contrast dye Isovue 200 contrast and observing an excellent epidurogram with the epidural spread of the dye, after negative aspiration for blood and CSF and in the absence of paresthesias. Again after negative aspiration, a 6 ml mixture containing 40 mg of Depo-medrol ( Preservetive Free ), and 2 ml of preservative free Normal Saline, and 2 ml of preservative free lidocaine 1% solution was injected and a washout of epidurogram was seen. Needle was withdrawn intact, skin was cleansed, and bandages were applied. COMPLICATIONS: None DISPOSITION / PLANS: The patient was placed in a supine position and transferred to the recovery area in a stable condition for observation. There was no evidence of lower extremity motor or sensory deficit after the procedure. Patient was discharged from the recovery room after meeting discharge criteria. Home discharge instructions were given to the patient by the staff. The patient was reexamined prior to discharge. The patient will schedule a follow up in the clinic in 2-4 weeks.
[2022-08-03] MEDS ORDERED: IV FLUID CONTINUATION 1,000 ML IV ONE (09:27)
[2022-08-03 09:38] VITALS: PULSE 78
[2022-08-03 09:46] VITALS: BP 111/78
--- NOTE | 2022-08-03 09:52 | FL ---
EXAMINATION TYPE: FL guided pain mgmt statistic DATE OF EXAM: 08/03/2022 HISTORY: Fluoroscopy time 1SEC FL TIME DAP [id number] of fluoroscopy provided. IMPRESSION: 1. Fluoroscopy time.
== END 2022-08-03 10:11 | disposition home or self-care (01) ==
LOC: ORPAIN 08:21
PROVIDERS: ATTEND Specialist
DX: M51.16 Intervertebral disc disorders with radiculopathy, lumbar region (principal); M47.26 Other spondylosis with radiculopathy, lumbar region; Z88.8 Allergy status to other drugs, medicaments and biological substances; Z88.5 Allergy status to narcotic agent
CPT/HCPCS: 62323; 99152; J2250; J1030; J3010; Q9966

== ENCOUNTER → 2022-08-31 | Outpatient (CLI) | payer MEDICARE, OTHER ==
[2022-08-31 09:06] VITALS: BP 119/83; PULSE 78; RESP 18; TEMP 98.2
--- NOTE | 2022-08-31 14:42 | P.PAINPG ---
PQRS Measure Charge Sheet Comment: A 42 yr old female with a history of severe and chronic LBP secondary to lumbar DDD and spondylosis with facet arthropathy without myelopathy presents today for evaluation s/p MARGARET L5-S1. Pt states she experienced 100 % pain relief x 2 wks s/p procedure. Pain level is provoked at 6/10 in intensity, constant, localized in the lumbar spine, sharp in character w shooting towards the BLEs. Pain is provoked by walking/ standing for periods of 30 min or more. Pain is alleviated with PT x 4 wks which ended in Jul 2022 when she broke a rib, heat, ice, meds (Ibu), topical, repositioning and rest. Interventional pain procedures completed include MARGARET L5-S1 x2 Patient is currently on Ibu Patient denies any side effects of the medication(s), denies excessive drowsiness or sleepiness, denies suicidal ideation and reports that the current pain medication is helping to control the pain and improve activities of daily living. Patient denies any motor or sensory deficits. Patient denies any fever or night sweats, denies any change in the bowel movements or urination. Physical Examination: -Constitutional: Cooperative. Not in acute distress . - Neurologic: Cranial nerve II to XII intact. No focal neurological deficits. - Psychatric: Alert & oriented x 3. Matching mood & appropriate affect. Judgment and insight intact. - Musculoskeletal: Cervical spine: Muscle bulk/ tone/ strength in the bilateral upper extremities normal Vertebral body tenderness to palpation over Spurling test positive Distraction test positive Facet loading test positive TTP Thoracic spine Muscle bulk / tone/ strength in the bilateral paraspinal muscles normal Vertebral body tender to palpation over Facet loading test positive TTP Lumbar spine: Motor bulk/ tone/ strength lower extremities , thigh and legs : 5/5 Deep tendon reflexes : Normal Knee Jerk. Normal Ankle Jerk . Vertebral body tenderness to palpation over L4 Lumbar Facet Loading Test positive Straight Leg Raise: positive at 30 degrees right side/ left side Gaenslen's Test positive Sacral spine : Severe tenderness over the Sacroiliac joint: right side / left side Range of motion: Flexion of the lumbar spine <60 degrees Range of motion: Extension of the lumbar spine <20 degrees Gaenslen's Test positive right side / left side Adele test: positive right side / left side Thigh Thrust Test positive right side / left side Sacral Thrust Test positive right side / left side Assessment and plan: Chronic LBP secondary to lumbar DDD, spondylosis with facet arthropathy without myelopathy Recommendation of MARGARET L4-L5 #3. May need a series of injections for optimal pain relief. Risks, benefits of procedure discussed and pt verbalized understanding. Admits to anticoagulant use or medical history of diabetes. Protocol for discontinuation/ continuation of medications vivien procedure discussed. All questions answered. I have spent less than 30 minutes on patient care today. Dr Ramirez was available by phone for the evaluation of this patient. The time was used to review the medical records including relevant urine studies and Prescription history (MAPs), review of the available imaging, evaluation and examination of the patient, coordination of care with the medical staff and if applicable referring physicians, as well as creation of the medical record PQRS Narrative: Smoking Status Current every day smoker Home Medications: Ambulatory Orders Diroximel Fumarate [Vumerity] 231 mg PO BID 06/08/22 Ibuprofen 600 mg PO BID 07/28/22 Controlled Substance Measures - Controlled Substance Measures Is patient prescribed a controlled substance at discharge?: No
== END ==
LOC: PNWHC3 08:11
PROVIDERS: ATTEND Specialist
DX: M51.36 Other intervertebral disc degeneration, lumbar region (principal); M47.816 Spondylosis without myelopathy or radiculopathy, lumbar region; G89.29 Other chronic pain; F17.200 Nicotine dependence, unspecified, uncomplicated; Z88.5 Allergy status to narcotic agent; Z88.8 Allergy status to other drugs, medicaments and biological substances
CPT/HCPCS: 99211

== ENCOUNTER → 2022-10-02 | Outpatient (CLI) | payer MEDICARE, OTHER ==
--- NOTE | 2022-10-02 14:43 | CT ---
EXAMINATION TYPE: CT chest wo con DATE OF EXAM: 10/02/2022 COMPARISON: 07/19/2022 HISTORY: 42-year-old female Right sided rib pain, no recent injury. Patient fell in 2020. TECHNIQUE: Contiguous axial scanning of the chest without IV contrast. Coronal and sagittal reconstru ctions performed. CT DLP: 234 mGycm Automated exposure control for dose reduction was used. FINDINGS: Heart normal size without pericardial effusion. Aorta normal caliber with conventional branching anatomy. No thoracic lymphadenopathy by CT size criteria. Calcified right hilar lymph node compatible with jonas or granulomatous disease. Moderate centrilobular emphysema. Mild diffuse bronchial wall thickening. 4 mm anterior right midlung pulmonary nodule, axial image 27 is unchanged. 5 mm anterior left upper lobe pulmonary nodule, axial image 13 is unchanged. Old healed left lateral fourth rib fracture deformity. No consolidation or pleural effusion. Visualized upper abdomen shows no gross abnormality. No displaced rib fractures identified. IMPRESSION: OLD HEALED LEFT LATERAL FOURTH RIB FRACTURE DEFORMITY. A COUPLE PULMONARY NODULES MEASURING UP TO 5 M M ARE UNCHANGED FOR 4 MONTHS. ADDITIONAL ONE-YEAR FOLLOW-UP RECOMMENDED. BACKGROUND COPD WITH MODERAT E EMPHYSEMA. NO ACUTE PULMONARY PROCESS.
== END | disposition home or self-care (01) ==
LOC: RADCTMAIN 13:38
PROVIDERS: ATTEND Family Medicine
DX: S22.41XA Multiple fractures of ribs, right side, initial encounter for closed fracture (principal); J43.9 Emphysema, unspecified; R91.8 Other nonspecific abnormal finding of lung field; X58.XXXA Exposure to other specified factors, initial encounter
CPT/HCPCS: 71250

== ENCOUNTER 2022-10-19 08:25 | Day surgery (SDC) | payer MEDICARE, OTHER ==
[2022-10-02 08:20] VITALS: BMI 15.6
[2022-10-19 08:54] VITALS: TEMP 97.8
[2022-10-19] MEDS ORDERED: fentaNYL (PF) 50 MCG/ML 2 ML AMP ONE (09:17)
[2022-10-19] MEDS ORDERED: IOPAMIDOL M200 10 ML VIAL ONE (09:17)
[2022-10-19] MEDS ORDERED: methylPREDNISolone ACETATE 80 MG/ML 1 ML VIAL ONE (09:17)
[2022-10-19] MEDS ORDERED: MIDAZOLAM 2 MG/2 ML VIAL ONE (09:17)
--- NOTE | 2022-10-19 09:25 | P.PCN ---
Date of Procedure: 10/19/22 Procedure(s) Performed: PREOPERATIVE DIAGNOSIS: 1- Lumbar Degenerative Disc Diseases 2-Lumbar spondylosis with Facet arthropathy without myelopathy. POSTOPERATIVE DIAGNOSIS: Same as preop diagnosis. PROCEDURE 1. Lumbar epidural steroid injection under fluoroscopic guidance at the L4-5 level. (Fluoroscopy imaging was available in radiology department) 2. Lumbar epidurogram. ANESTHESIA: moderate sedation with intravenous Versed 1 mg ,and fentanyle 50 Mcg Sedation start time : 916 Sedation end time : 921 EBL: Minimal PROCEDURE INDICATION: The patient with low back pain and radiculitis symptoms unresponsive to conservative treatment. Fluoroscopy was used to optimize visualization of the needle placement and to maximize safety. PROCEDURE DESCRIPTION / TECHNIQUE: The patient was seen and identified in the preoperative area. Risks, benefits, complications including but not limited to infections ,bleeding ,allergic reaction to the medications ,nerve damage and not complete pain releife , and alternatives were discussed with the patient. The patient agreed to proceed with the procedure and signed the consent. IV was started, and vital signs were stable. Patient was taken to the OR and time out was completed. The patient was placed in the prone position on procedure table and a pillow was placed under the abdomen to reduce lumbar lordosis. The lumbosacral area was prepped and draped in the usual sterile fashion.ere closely monitored during the procedure. Conscious sedation was used during the procedure to decrease patients anxiety. Vital signs was monitered during the entire procedure. Using anterior-posterior fluoroscopy, the L4-5 interlaminar space was identified and the skin over this site was marked and then infiltrated with 1% lidocaine subcutaneously. Subsequently, a 20-gauge Tuohy epidural needle was inserted and advanced toward the epidural space using the ``Loss of resistance technique and guided by AP and lateral fluoroscopy. The correct needle position in the epidural space was verified with the injection of 2 mL of the water soluble contrast dye Isovue 200 contrast and observing an excellent epidurogram with the epidural spread of the dye, after negative aspiration for blood and CSF and in the absence of paresthesias. Again after negative aspiration, a 6 ml mixture containing 60 mg of Depo-medrol ( Preservetive Free ), and 2 ml of preservative free Normal Saline, and 2 ml of preservative free lidocaine 1% solution was injected and a washout of epidurogram was seen. Needle was withdrawn intact, skin was cleansed, and bandages were applied. COMPLICATIONS: None DISPOSITION / PLANS: The patient was placed in a supine position and transferred to the recovery area in a stable condition for observation. There was no evidence of lower extremity motor or sensory deficit after the procedure. Patient was discharged from the recovery room after meeting discharge criteria. Home discharge instructions were given to the patient by the staff. The patient was reexamined prior to discharge. The patient will schedule a follow up in the clinic in 2-4 weeks.
[2022-10-19] MEDS ORDERED: IV FLUID CONTINUATION 1,000 ML IV ONE (09:28)
--- NOTE | 2022-10-19 09:39 | FL ---
Intraoperative/procedural fluoroscopic services were provided. Total fluoroscopy time is 2.4 seconds with a total of 1 submitted images to PACS. Please see the operative/procedural note for further deta ils. DAP: [id number] mGym2
[2022-10-19 09:43] VITALS: BP 132/89; PULSE 76; RESP 16
== END 2022-10-19 09:57 | disposition home or self-care (01) ==
LOC: ORPAIN 08:25
PROVIDERS: ATTEND Specialist
DX: M51.16 Intervertebral disc disorders with radiculopathy, lumbar region (principal); M47.26 Other spondylosis with radiculopathy, lumbar region; Z88.5 Allergy status to narcotic agent; Z88.8 Allergy status to other drugs, medicaments and biological substances
CPT/HCPCS: 62323; J2250; J1040; J3010; Q9966

== ENCOUNTER → 2022-12-07 | Outpatient (CLI) | payer MEDICARE, OTHER ==
[2022-12-07 08:43] VITALS: BP 138/95; PULSE 85; RESP 16; TEMP 98.1
--- NOTE | 2022-12-07 14:02 | P.PAINPG ---
PQRS Measure Charge Sheet Comment: A 42 yr old female with a history of severe and chronic LBP secondary to lumbar DDD and spondylosis with facet arthropathy without myelopathy presents today for evaluation s/p MARGARET L4-L5. Pt states she experienced 80% pain relief x 2-3 wks s/p procedure. Pain level is provoked at 8 /10 in intensity, constant, localized in the lumbar spine, sharp in character w shooting towards the BLEs. Pain is provoked by walking/ standing for periods of 30 min or more. Pain is alleviated with PT x 4 wks which ended in Jul 2022 when she broke a rib, heat, ice, meds (Ibu), topical, repositioning and rest. Oswestry axial pain score of 23. She admits she had an RFA at Dr Whitley's office years ago but is unsure how much pain relief she received. Interventional pain procedures completed include MARGARET L5-S1 x2, L4-L5 x1 Patient is currently on Ibu Patient denies any side effects of the medication(s), denies excessive drowsiness or sleepiness, denies suicidal ideation and reports that the current pain medication is helping to control the pain and improve activities of daily living. Patient denies any motor or sensory deficits. Patient denies any fever or night sweats, denies any change in the bowel movements or urination. Physical Examination: -Constitutional: Cooperative. Not in acute distress . - Neurologic: Cranial nerve II to XII intact. No focal neurological deficits. - Psychatric: Alert & oriented x 3. Matching mood & appropriate affect. Judgment and insight intact. - Musculoskeletal: Cervical spine: Muscle bulk/ tone/ strength in the bilateral upper extremities normal Vertebral body tenderness to palpation over Spurling test positive Distraction test positive Facet loading test positive TTP Thoracic spine Muscle bulk / tone/ strength in the bilateral paraspinal muscles normal Vertebral body tender to palpation over Facet loading test positive TTP Lumbar spine: Motor bulk/ tone/ strength lower extremities , thigh and legs : 5/5 Deep tendon reflexes : Normal Knee Jerk. Normal Ankle Jerk . Vertebral body tenderness to palpation over L4 Lumbar Facet Loading Test positive Straight Leg Raise: positive at 30 degrees right side/ left side Gaenslen's Test positive Sacral spine : Severe tenderness over the Sacroiliac joint: right side / left side Range of motion: Flexion of the lumbar spine <60 degrees Range of motion: Extension of the lumbar spine <20 degrees Gaenslen's Test positive right side / left side Adele test: positive right side / left side Thigh Thrust Test positive right side / left side Sacral Thrust Test positive right side / left side Assessment and plan: Chronic LBP secondary to lumbar DDD, spondylosis with facet arthropathy without myelopathy Recommendation of MARGARET L4-L5 #2. May need a series of injections for optimal pain relief. Risks, benefits of procedure discussed and pt verbalized understanding. Admits to anticoagulant use or medical history of diabetes. Protocol for discontinuation/ continuation of medications vivien procedure discussed. All questions answered. I have spent less than 30 minutes on patient care today. Dr Ramirez was available by phone for the evaluation of this patient. The time was used to review the medical records including relevant urine studies and Prescription history (MAPs), review of the available imaging, evaluation and examination of the patient, coordination of care with the medical staff and if applicable referring physicians, as well as creation of the medical record PQRS Narrative: Smoking Status Current every day smoker Home Medications: Ambulatory Orders Diroximel Fumarate [Vumerity] 231 mg PO BID 06/08/22 Ibuprofen 600 mg PO BID 07/28/22 Controlled Substance Measures - Controlled Substance Measures Is patient prescribed a controlled substance at discharge?: No
== END ==
LOC: PNWHC3 08:07
PROVIDERS: ATTEND Specialist
DX: M51.36 Other intervertebral disc degeneration, lumbar region (principal); M47.816 Spondylosis without myelopathy or radiculopathy, lumbar region; G89.29 Other chronic pain; F17.200 Nicotine dependence, unspecified, uncomplicated; Z88.5 Allergy status to narcotic agent; Z88.8 Allergy status to other drugs, medicaments and biological substances
CPT/HCPCS: 99211

== ENCOUNTER → 2022-12-21 | Day surgery (SDC) | payer MEDICARE, OTHER ==
[2022-12-15 12:15] VITALS: BMI 15.6
[~2022-12-21] MED LIST changes: +IOPAMIDOL M200 10 ML VIAL ONE; -LIDOCAINE 1% (10MG/ML) FOR IV START INTRADERMA PRN; +methylPREDNISolone ACETATE 80 MG/ML 1 ML VIAL ONE
[2022-12-21 06:44] VITALS: TEMP 97.4
--- NOTE | 2022-12-21 07:18 | P.PCN ---
Date of Procedure: 12/21/22 Procedure(s) Performed: PREOPERATIVE DIAGNOSIS: 1- Lumbar Degenerative Disc Diseases 2-Lumbar spondylosis with Facet arthropathy without myelopathy. POSTOPERATIVE DIAGNOSIS: Same as preop diagnosis. PROCEDURE 1. Lumbar epidural steroid injection under fluoroscopic guidance at the L4-5 level. (Fluoroscopy imaging was available in radiology department) 2. Lumbar epidurogram. ANESTHESIA: Lidocaine 1% 3 mL only EBL: Minimal PROCEDURE INDICATION: The patient with low back pain and radiculitis symptoms unresponsive to conservative treatment. Fluoroscopy was used to optimize visualization of the needle placement and to maximize safety. PROCEDURE DESCRIPTION / TECHNIQUE: The patient was seen and identified in the preoperative area. Risks, benefits, complications including but not limited to infections ,bleeding ,allergic reaction to the medications ,nerve damage and not complete pain releife , and alternatives were discussed with the patient. The patient agreed to proceed with the procedure and signed the consent, and vital signs were stable. Patient was taken to the OR and time out was completed. The patient was placed in the prone position on procedure table and a pillow was placed under the abdomen to reduce lumbar lordosis. The lumbosacral area was prepped and draped in the usual sterile fashion.ere closely monitored during the procedure. Vital signs was monitered during the entire procedure. Using anterior-posterior fluoroscopy, the L4-5 interlaminar space was identified and the skin over this site was marked and then infiltrated with 1% lidocaine subcutaneously. Subsequently, a 20-gauge Tuohy epidural needle was inserted and advanced toward the epidural space using the ``Loss of resistance technique and guided by AP and lateral fluoroscopy. The correct needle position in the epidural space was verified with the injection of 2 mL of the water soluble contrast dye Isovue 200 contrast and observing an excellent epidurogram with the epidural spread of the dye, after negative aspiration for blood and CSF and in the absence of paresthesias. Again after negative aspiration, a 6 ml mixture containing 40 mg of Depo-medrol ( Preservetive Free ), and 2 ml of preservative free Normal Saline, and 2 ml of preservative free lidocaine 1% solution was injected and a washout of epidurogram was seen. Needle was withdrawn intact, skin was cleansed, and bandages were applied. COMPLICATIONS: None DISPOSITION / PLANS: The patient was placed in a supine position and transferred to the recovery area in a stable condition for observation. There was no evidence of lower extremity motor or sensory deficit after the procedure. Patient was discharged from the recovery room after meeting discharge criteria. Home discharge instructions were given to the patient by the staff. The patient was reexamined prior to discharge. The patient will schedule a follow up in the clinic in 2-4 weeks.
[2022-12-21 07:19] VITALS: BP 133/95; PULSE 77; RESP 16
--- NOTE | 2022-12-21 07:51 | FL ---
EXAMINATION TYPE: FL guided pain mgmt statistic DATE OF EXAM: 12/21/2022 FLUOROSCOPY Fluoroscopy time of 2 seconds was used during lumbar vertebral steroid injection. 1 image/s document /s the procedure. Total DAP: [id number]
== END ==
LOC: ORPAIN 05:47
PROVIDERS: ATTEND Specialist
DX: M51.16 Intervertebral disc disorders with radiculopathy, lumbar region (principal); M47.26 Other spondylosis with radiculopathy, lumbar region; Z88.5 Allergy status to narcotic agent; Z88.8 Allergy status to other drugs, medicaments and biological substances
CPT/HCPCS: 62323; J1040; Q9966

== ENCOUNTER → 2022-12-25 | Outpatient (CLI) | payer MEDICARE, OTHER ==
--- NOTE | 2022-12-25 08:54 | MM ---
Reason for Exam: Screening (asymptomatic). Last mammogram was performed 1 year(s) and 3 month(s) ago. Patient History: Menarche at age 11. First Full-Term at age 17. Hysterectomy at age 33. Patient used Hormonal Contraceptives for 5 years. Risk Values: Lara 5 year model risk: 0.6%. NCI Lifetime model risk: 7.1%. Prior Study Comparison: 07/03/2014 Bilateral Diagnostic Mammogram, [facility]. 07/12/2015 Bilateral Screening Mammogram, [facility] 02/19/2018 Bilateral Screening Mammogram, [facility]. Tissue Density: The breast tissue is heterogeneously dense. This may lower the sensitivity of mammography. Findings: Analyzed By CAD. There is no suspicious group of microcalcifications or new suspicious mass in either breast. Overall Assessment: Negative, BI-RAD 1 Management: Screening Mammogram of both breasts in [address] [facility] will attempt to contact patient to return for supplemental views and ultrasound if indicated. Patient should continue monthly self-breast exams. A clinical breast exam by your physician is recommended on an annual basis. This exam should not preclude additional follow-up of suspicious palpable abnormalities. Note on Lara scores and lifetime risk: 1. A Lara score greater than 3% is considered moderate risk. If this is the case, consider specialist referral to assess eligibility for a risk reducing agent. 2. If overall lifetime risk for the development of breast cancer is 20% or higher, the patient may qualify for future screening with alternating mammogram and breast MRI. Electronically signed and approved by: Jb Amin DO
== END | disposition home or self-care (01) ==
LOC: RADMAMWWP 07:09
PROVIDERS: ATTEND Obstetrics & Gynecology
DX: Z12.31 Encounter for screening mammogram for malignant neoplasm of breast (principal)
CPT/HCPCS: 77063; 77067

== ENCOUNTER → 2024-08-01 | Outpatient (CLI) | payer MEDICARE, OTHER ==
--- NOTE | 2024-08-01 14:08 | MR ---
EXAMINATION TYPE: MR knee RT wo con DATE OF EXAM: 08/01/2024 COMPARISON: MRI right knee October 24, 2019 HISTORY: Right knee medial pain x 2 months with locking and swelling per patient, arthroscopy done. TECHNIQUE: Multiplanar, multisequence images of the knee is performed without IV contrast. FINDINGS: MEDIAL MENISCUS: More prominent oblique signal posterior horn extends to inferior articular surface o n current study. LATERAL MENISCUS: Anterior and posterior horns are intact without tear. CRUCIATE LIGAMENTS: The anterior and posterior cruciate ligaments are intact and unremarkable. COLLATERAL LIGAMENTS: The medial collateral ligament and lateral collateral ligament complex are inta ct and unremarkable. EXTENSOR MECHANISM: Visualized quadriceps and patellar tendons are intact. EFFUSION: No significant suprapatellar joint effusion. POPLITEAL CYST: No popliteal/llanos cyst. TRICOMPARTMENT SPACES: Mild to moderate tricompartment joint space loss without significant spurring is redemonstrated. CARTILAGE: Tricompartmental cartilage is preserved. BONE MARROW SIGNAL: No focal abnormal marrow signal is appreciated. OTHER: No additional significant abnormality is appreciated. IMPRESSION: 1. More prominent full-thickness tear posterior horn medial meniscus. 2. Mild tricompartmental degenerative changes redemonstrated without significant interval change. 3. No new meniscal or ligamentous tear identified. [facility], , 08/01/2024 2:06 PM
== END | disposition home or self-care (01) ==
LOC: RADMRIMAIN 13:07
PROVIDERS: ATTEND Orthopaedic Surgery
DX: M23.221 Derangement of posterior horn of medial meniscus due to old tear or injury, right knee (principal); M17.11 Unilateral primary osteoarthritis, right knee

== ENCOUNTER → 2024-08-07 | Outpatient (CLI) | payer MEDICARE, OTHER ==
[2024-08-07 14:52] LABS: Basophils # (A) 0.02 X 10*3/uL (0.00-0.10); Basophils % (A) 0.2 %; Eosinophils # (A) 0 X 10*3/uL (0.04-0.35); Eosinophils % (A) 0 %; HCT 41.1 % (37.2-46.3); HGB 13.8 g/dL (12.0-15.0); Lymphocytes # (A) 0.52 X 10*3/uL (0.90-5.00); Lymphocytes % (A) 5.7 %; MCHC 33.6 g/dL (32.0-37.0); MCV 83.5 FL (80.0-97.0); Mean Platelet Volume 13.3 FL (9.5-12.2); Monocytes # (A) 0.54 X 10*3/uL (0.20-1.00); Monocytes % (A) 5.9 %; NRBC Per 100 WBC 0 X 10*3/uL (0.00-0.01); Neutrophils % (A) 87.9 %; Platelet Count 180 X 10*3/uL (140-440); RBC 4.92 X 10*6/uL (4.10-5.20); WBC 9.11 X 10*3/uL (4.50-10.00)
[2024-08-07 15:02] LABS: Blood Urea Nitrogen 7.8 mg/dL (9.0-27.0); Calcium 9.6 mg/dL (8.7-10.3); Chloride 100 mmol/L (96-109); Glucose 130 mg/dL (70-110); Potassium 4.2 mmol/L (3.5-5.5); Sodium 138 mmol/L (135-145)
== END | disposition home or self-care (01) ==
LOC: LABPAT 11:02
PROVIDERS: ATTEND Orthopaedic Surgery
DX: Z01.812 Encounter for preprocedural laboratory examination (principal); M23.91 Unspecified internal derangement of right knee
CPT/HCPCS: 80048; 85025

== ENCOUNTER 2024-08-22 10:03 | Day surgery (SDC) | payer MEDICARE, OTHER ==
--- NOTE | 2024-08-21 12:00 | P.HPOR ---
History of Present Illness H&P Date: 08/21/24 Chief Complaint: Right knee pain The patient is a 44-year-old female who presents with right knee pain, locking, and giving way for the past several months. She has tried medications, injections, and bracing without much relief. She has had multiple recent falls. Review of Systems Per HPI Past Medical History Past Medical History: COPD, Neurologic Disorder, Rheumatoid Arthritis (RA) Additional Past Medical History / Comment(s): MS, FX RIB RT SIDE IN MAY 2023. History of Any Multi-Drug Resistant Organisms: None Reported Past Surgical History: Appendectomy, Hysterectomy, Orthopedic Surgery, Tubal Ligation Additional Past Surgical History / Comment(s): 4 surgeries left knee. removal abdominal tumor under left breast as infant, PAIN CLINIC PROCEDURE, COLONOSCOPY Past Anesthesia/Blood Transfusion Reactions: No Reported Reaction, Postoperative Nausea & Vomiting (PONV) Smoking Status: Current every day smoker - Past Family History Father Family Medical History: Cancer Mother Family Medical History: Cancer Medications and Allergies Home Medications Medication Instructions Recorded Confirmed Type Dimethyl Fumarate 240 mg PO BID 08/19/24 08/19/24 History Ibuprofen 800 mg PO Q8H PRN 08/19/24 08/19/24 History Allergies Allergy/AdvReac Type Severity Reaction Status Date / Time hydrocodone bitartrate Allergy Intermediate Nausea & Verified 08/19/24 12:57 [From Lortab] Vomiting & Diarrhea oxycodone HCl [From Percocet] Allergy Intermediate Nausea & Verified 08/19/24 12:57 Vomiting & Diarrhea prednisone AdvReac Nausea & Verified 08/19/24 12:57 Vomiting Physical Examination - Knee right Tenderness with palpation: anterior, medial Pain: throughout ROM Gait: limping ROM: extension: -5 degrees ROM: flexion: 140 degrees Strength: extension: 5/5 Strength: flexion: 5/5 Meniscal tests: medial meniscal tests: positive, medial joint line pain: positive Results The patient is a well-developed well-nourished female approximately 5 foot 6, 106 pounds of ectomorphic habitus. HEENT exam is nonfocal, neck is supple. She is tender about the right knee along the medial joint line. Collaterals are stable, Alejandra's negative, Mia's elicits medial pain. Her distal neurovascular exam appears intact in the right lower extremity. - Diagnostic results Knee MRI: image reviewed (MRI of the right knee shows evidence of a posterior medial meniscal tear) Assessment and Plan Assessment: Right knee internal derangementsymptomatic medial meniscal tear Right knee moderate medial compartment osteoarthrosis History of multiple sclerosis Plan: I talked to the patient at length regarding her condition along with treatment options. At this point she is having persistent pain and mechanical symptoms despite conservative measures. After a thorough discussion she opts to proceed with surgery. We will plan to proceed with right knee arthroscopy with possible partial medial meniscectomy. Risks and benefits were discussed at length in layman's terms. We will likely perform that as an outpatient procedure.
[~2024-08-22 10:03] MED LIST changes: -IOPAMIDOL M200 10 ML VIAL ONE; -LACTATED RINGERS 1,000 ML IV SCH; +MIDAZOLAM 2 MG/2 ML VIAL IV PRN; +fentaNYL (PF) 50 MCG/ML 2 ML AMP IVP PRN; -methylPREDNISolone ACETATE 80 MG/ML 1 ML VIAL ONE
[2024-08-22 10:37] VITALS: RESP 16
[2024-08-22] MEDS: IV FLUID CONTINUATION 1,000 ML IV ONE (10:42)
[2024-08-22] MEDS: DEXAMETHASONE SOD PHOSPHATE 4 MG/ML 1 ML VIAL IVP STA (10:45)
[2024-08-22] MEDS: ONDANSETRON 4 MG/2 ML VIAL IVP ONE (10:45)
[2024-08-22] MEDS: LIDOCAINE 1% (10MG/ML) FOR IV START INTRADERMA PRN (10:46)
[2024-08-22] MEDS: LACTATED RINGERS 1,000 ML IV SCH (10:46)
[2024-08-22] MEDS ORDERED: fentaNYL (PF) 50 MCG/ML 2 ML AMP ONE (12:16)
[2024-08-22] MEDS ORDERED: MIDAZOLAM 2 MG/2 ML VIAL ONE (12:16)
[2024-08-22] MEDS ORDERED: PROPOFOL 10 MG/ML 20 ML VIAL IV ONE (12:16)
[2024-08-22] MEDS ORDERED: LIDOCAINE 1% INJ 10MG/ML (20 ML MDV) ONE (12:16)
[2024-08-22] MEDS ORDERED: KETOROLAC 15 MG/ML 1 ML VIAL ONE (12:16)
[2024-08-22] MEDS ORDERED: NALOXONE 0.4 MG/ML 1 ML VIAL ONE (12:16)
[2024-08-22] MEDS: SODIUM CHLORIDE IRRIGATION ONE (12:37)
[2024-08-22] MEDS: EPINEPHRINE IRRIGATION ONE (12:37)
--- NOTE | 2024-08-22 12:59 | P.OP ---
Date of Procedure: 08/22/24 Preoperative Diagnosis: Right knee internal derangement Postoperative Diagnosis: Right knee posterior medial meniscal tear Procedure(s) Performed: Right knee arthroscopic partial medial meniscectomy Anesthesia: DARYA Surgeon: Ken Santana Estimated Blood Loss (ml): 10 Pathology: none sent Condition: stable Disposition: PACU Indications for Procedure: The patient is a 44-year-old female who presents after multiple recent falls with persistent right knee pain and mechanical symptoms. A discussion of the risks and benefits of operative intervention versus continued conservative measures was made with the patient. She opted to proceed with surgery. Operative risks include infection, neurovascular injury, develop blood clots, possible incomplete resolution of symptoms, possible worsening of symptoms or need for subsequent procedures was discussed. Informed consent was obtained. Operative Findings: As below Description of Procedure: The patient was brought to the operating room, and after induction of general anesthesia examined the right knee. Collaterals were stable, Alejandra was negative, and posterior drawer was negative. The right lower extremity was prepped and draped in a normal fashion. A superior lateral portal was made through a 3 mm skin incision superior and lateral to the patella. This was used for outflow. A lateral portal was made through a 5 mm vertical skin incision lateral to the patella tendon above the joint line. Diagnostic arthroscopy was performed. On inspection of the medial compartment, a longitudinal tear involving the posterior horn the medial meniscus in the whitewhite junction was noted. This was unstable.. This was debrided back to stable base with straight baskets and a motorized shaver. The remaining medial meniscus was stable and intact. On inspection of the notch, the anterior cruciate ligament appeared to be intact. On inspection of the lateral compartment, no significant meniscal pathology was noted. On inspection of the patellofemoral articulation, there was mild chondral fibrillation however no loose chondral fragments. The gutters were clear debris. The knee was then thoroughly irrigated. The portals were closed with Steri-Strips. A sterile dressing was applied in addition to a compression stocking. The patient was awoken from general anesthesia and transferred to recovery room in good condition. Blood loss was estimated at 10 mL. No complications were incurred.
[2024-08-22] MEDS: HYDROmorphone 0.5 MG/0.5 ML SYRINGE IVP PRN (13:51)
[2024-08-22 14:04] VITALS: TEMP 97
[2024-08-22] MEDS: SODIUM CHLORIDE 0.9% 500 ML 500 ML IV ONE (14:17)
[2024-08-22 15:26] VITALS: BP 137/86; PULSE 85
== END 2024-08-22 15:32 | disposition home or self-care (01) ==
LOC: OR 10:03
PROVIDERS: ATTEND Orthopaedic Surgery
DX: S83.241A Other tear of medial meniscus, current injury, right knee, initial encounter (principal); M17.11 Unilateral primary osteoarthritis, right knee; M06.9 Rheumatoid arthritis, unspecified; J44.9 Chronic obstructive pulmonary disease, unspecified; G35 Multiple sclerosis; F17.210 Nicotine dependence, cigarettes, uncomplicated; Z88.5 Allergy status to narcotic agent; Z88.8 Allergy status to other drugs, medicaments and biological substances; Z90.49 Acquired absence of other specified parts of digestive tract; Z90.710 Acquired absence of both cervix and uterus; Z79.899 Other long term (current) drug therapy; Z79.1 Long term (current) use of non-steroidal anti-inflammatories (NSAID); X58.XXXA Exposure to other specified factors, initial encounter
CPT/HCPCS: 29881; J2250; J1100; J2310; J2405; J0690; J0171; J2003; J3010; J1885; J2704; J1171